=== PATIENT | female | born 1990 | race Caucasian/White ===

== ENCOUNTER 2020-04-23 18:38 | Inpatient (IN) | payer BC, SELFPAY ==
[2020-04-23] VITALS (8 sets, daily range): BP systolic 130–149; BP diastolic 81–99; PULSE 93–108; TEMP 36.1–36.6; BMI 46.5
--- NOTE | ~2020-04-23 | XR_ITS ---
EXAMINATION: XR abdomen/kub 1V EXAM DATE: 04/25/2020 10:00 INDICATION: No surgical count. TECHNIQUE: Frontal projection(s) of the abdomen and pelvis for interpretation. There is no prior andreia dy for comparison. FINDINGS: No radiopaque foreign bodies identified. There is expected amount of colonic stool and gas . No small bowel dilation, nonobstructive bowel gas pattern. There are no suspicious calcificatio ns identified. The bones are unremarkable. IMPRESSION: No radiopaque foreign bodies identified. Reviewed, dictated and finalized at location A.
[2020-04-23 19:59] LABS: Basophils Percent Auto 0.2 % (0.2-1.2); Eosinophils Absolute Auto 0.1 K/mm3 (0-0.3); Eosinophils Percent Auto 1.2 % (0-4.4); Hematocrit 35.1 % (37.0-47.0); Hemoglobin 11.6 g/dL (12.0-15.0); Immature Granulocyte Absolute 0.38 K/mm3 (0.00-0.031); Immature Granulocyte Percent A 3.1 % (0-0.5); Lymphocytes Absolute Auto 2.04 K/mm3 (0.9-3.2); Lymphocytes Percent Auto 16.8 % (18.3-44.2); Mean Corpuscular Hemoglobin 27.5 pg (26-34); Mean Corpuscular Volume 83.2 fl (80-100); Mean Platelet Volume 9.9 fl (7.4-10.4); Monocytes Absolute Auto 0.6 K/mm3 (0.1-0.6); Monocytes Percent Auto 4.9 % (2.6-8.5); Neutrophils Percent Auto 73.8 % (45.5-73.1); Nucleated Red Blood Cells Perc 0.2 % (0.0-0.2); Platelet Count Result 231 k/mm3 (150-375); Red Blood Count 4.22 M/mm3 (4.2-5.4); Red Cell Distribution Width 15.9 % (11.5-14.5); White Blood Count 12.2 K/mm3 (4.5-10.0)
[2020-04-23] MEDS: DINOPROSTONE 10 MG VAG INSERT VAGINAL (20:00)
[2020-04-23 20:10] LABS: Alanine Aminotransferase 15 U/L (4-35); Albumin Level 3.5 g/dL (3.5-5.1); Alkaline Phosphatase 153 U/L (38-126); Aspartate Amino Transferase 19 U/L (14-36); Bilirubin,Total 0.2 mg/dL (0.2-1.3); Blood Urea Nitrogen 11 mg/dL (7-17); Calcium 9.2 mg/dL (8.4-10.2); Carbon Dioxide 20 mmol/L (22-30); Chloride 105 mmol/L (98-107); Estimated Glomerular Filt Rate > 60; Glucose 110 mg/dL (65-105); Potassium 3.7 mmol/L (3.4-5.0); Sodium 134 mmol/L (137-145); Uric Acid 5.9 mg/dL (2.5-7.5)
[2020-04-23] MEDS: LACTATED RINGERS 1,000 ML 125 ML IV CONT (20:16)
[2020-04-23] MEDS: AMPICILLIN 2 GM/NS 100 ML 2 GM/100 ML BAG IVPB (20:16)
--- NOTE | 2020-04-23 20:25 | LDADM ---
This patient, Kaye Dash, was admitted to Labor/Delivery/Recovery 108 on 04/23/20 at 18:38. Plans for labor, pain management and were discussed with patient. Patient/family oriented to hospital policies and general routines including ID bracelet, bed and alarms, visiting hours, pain management, procedures, bathroom and other care routines, personal items, smoking policy, room service/diet and guest tray routines, infant security routines, and visiting hours. Patient/Family are encouraged to report perceived risks to care and to ask questions if they do not understand what they are told or what they should do. See OBIX for further documentation.
[2020-04-24] VITALS (228 sets, daily range): BP systolic 100–168; BP diastolic 48–111; PULSE 76–128; TEMP 36.2–37.4; O2SAT 94–100
[2020-04-24] MEDS: AMPICILLIN 1 GM/NS 50 ML 1 GM/50 ML BAG IVPB ×6 (00:11→22:31)
--- NOTE | 2020-04-24 03:57 | WPDANESEPP ---
Anes - Eval Pre Procedure Procedure: labor epidural Date/Time: 04/24/20 03:57 Surgeon: Anjel Preop Diagnosis: Abd pain with contractions Pre Op Diagnosis: IOL Patient Data Age: 29 Gender: F Height: 5 ft 4 in Weight: 123 kg Last Vital Signs Temp 97.1 F L 04/24/20 02:22 Pulse 97 04/24/20 02:26 BP 136/91 H 04/24/20 02:26 Allergies Allergy/AdvReac Type Severity Reaction Status Date / Time No Known Allergies Allergy Verified 04/05/20 12:37 Home Medications Medication Instructions Recorded Confirmed Type PNV cmb#95-ferrous fumarate-FA 1 tablet PO DAILY 04/05/20 04/05/20 History [] aspirin [Aspirin Low Dose] 81 mg PO DAILY 04/05/20 04/05/20 History Laboratory Tests 04/23/20 04/23/20 04/23/20 19:50 19:50 19:50 WBC 12.2 K/mm3 H K/mm3 (4.5-10.0) RBC 4.22 M/mm3 M/mm3 (4.2-5.4) Hgb 11.6 g/dL L g/dL (12.0-15.0) Hct 35.1 % L % (37.0-47.0) MCV 83.2 fl fl (80-100) MCH 27.5 pg pg (26-34) MCHC 33.0 g/dl g/dl (32-36) RDW 15.9 % H % (11.5-14.5) Plt Count 231 k/mm3 k/mm3 (150-375) MPV 9.9 fl fl (7.4-10.4) Immature Gran % (Auto) 3.1 % H % (0-0.5) Neut % (Auto) 73.8 % H % (45.5-73.1) Lymph % (Auto) 16.8 % L % (18.3-44.2) [place] % (Auto) 4.9 % % (2.6-8.5) Eos % (Auto) 1.2 % % (0-4.4) Baso % (Auto) 0.2 % % (0.2-1.2) Lymph # (Auto) 2.04 K/mm3 K/mm3 (0.9-3.2) [place] # (Auto) 0.6 K/mm3 K/mm3 (0.1-0.6) Eos # (Auto) 0.1 K/mm3 K/mm3 (0-0.3) Baso # (Auto) 0.0 K/mm3 K/mm3 (0.0-0.1) Abs Immat Gran (auto) 0.38 K/mm3 H K/mm3 (0.00-0.031) Absolute Neuts (auto) 9.0 K/mm3 H K/mm3 (1.3-6.7) Absolute Nucleated RBC 0.0 K/mm3 K/mm3 (0.0-0.012) Nucleated RBC % 0.2 % % (0.0-0.2) Sodium Potassium Chloride Carbon Dioxide BUN Creatinine Estim Creat Clear Calc Estimated GFR Glucose Uric Acid Cancelled Calcium Total Bilirubin AST ALT Alkaline Phosphatase Total Protein Albumin RPR Pending Blood Type Antibody Screen 04/23/20 04/23/20 19:50 19:50 WBC RBC Hgb Hct MCV MCH MCHC RDW Plt Count MPV Immature Gran % (Auto) Neut % (Auto) Lymph % (Auto) [place] % (Auto) Eos % (Auto) Baso % (Auto) Lymph # (Auto) [place] # (Auto) Eos # (Auto) Baso # (Auto) Abs Immat Gran (auto) Absolute Neuts (auto) Absolute Nucleated RBC Nucleated RBC % Sodium 134 mmol/L L mmol/L (137-145) Potassium 3.7 mmol/L mmol/L (3.4-5.0) Chloride 105 mmol/L mmol/L (98-107) Carbon Dioxide 20 mmol/L L mmol/L (22-30) BUN 11 mg/dL mg/dL (7-17) Creatinine 0.50 mg/dL L mg/dL (0.7-1.0) Estim Creat Clear Calc Not Reportable Estimated GFR > 60 (59 - ) Glucose 110 mg/dL H mg/dL (65-105) Uric Acid 5.9 mg/dL mg/dL (2.5-7.5) Calcium 9.2 mg/dL mg/dL (8.4-10.2) Total Bilirubin 0.2 mg/dL mg/dL (0.2-1.3) AST 19 U/L U/L (14-36) ALT 15 U/L U/L (4-35) Alkaline Phosphatase 153 U/L H U/L (38-126) Total Protein 7.0 g/dL g/dL (6.3-8.2) Albumin 3.5 g/dL g/dL (3.5-5.1) RPR Blood Type O Positive Antibody Screen Negative Patient hx anesthesia problems: none Family hx anesthesia problems: none PMFSH Past Medical History Medical History (Reviewed 04/24/20 @ 03:59 b
--- NOTE | 2020-04-24 08:00 | WPDOBADMIT ---
Obstetrics - Admit Note Admission Note: 29 y/o G1 @ 38w2d here for induction of labor d/t chronic hypertension Cervix 8nth7lty/thick/-3 but well applied AROM small amount of clear odorless fluid. Anticipate record reviewed. No pertinent additions to the history and/or any subsequent changes in the physical findings that are not consistent with the expected course of the were found. Additions to the history and/or subsequent changes in the physical findings follow. None.
[2020-04-24 08:50] LABS: Rapid Plasma Reagin Non-Reactive (NonReactive)
[2020-04-24] MEDS: LACTATED RINGERS 1,000 ML 125 ML IV CONT ×3 (10:14→19:58)
[2020-04-24] MEDS: OXYTOCIN 30 UNITS/NS 500 ML 30 UNITS/500 ML BAG 6 UNITS IV CONT (11:17)
[2020-04-24] MEDS: ONDANSETRON INJ 4 MG/2 ML VIAL IV PUSH (19:54)
[2020-04-25] VITALS (184 sets, daily range): BP systolic 114–162; BP diastolic 57–107; PULSE 73–127; RESP 16–20; TEMP 36.4–37.5; O2SAT 94–100
[2020-04-25] MEDS: AMPICILLIN 1 GM/NS 50 ML 1 GM/50 ML BAG IVPB ×2 (02:31→06:23)
[2020-04-25] MEDS: OXYTOCIN 30 UNITS/NS 500 ML 30 UNITS/500 ML BAG 36 UNITS IV CONT (07:19)
--- NOTE | 2020-04-25 08:55 | PM.OBPNLAB ---
Pain Control Date/time seen: 04/25/20 08:55 CNM called to evaluate /-2, pt started bleeding by my arrival around 500cc, on exam found second degree laceration, repaired with 3-0 vicryl, bleeding still from unknown location discussed with pt loss of blood and station of fetus, will plan for section, DR. Turcios called and pt transferred to the operating room.
--- NOTE | 2020-04-25 10:01 | P.OP_ITS ---
Procedure Note - Detailed Date of procedure: 04/25/20 Pre-op diagnosis: IOL intra hemorrhage, failure to descend Post-op diagnosis: same ( malposition of the head) Procedure performed: low-transverse delivery Description of procedure: The patient was taken the operating room. She was prepped and draped in the dorsal supine position with leftward tilt after induction of spinal anesthetic. When anesthesia was found to be adequate a low- transverse skin incision was made and carried down to the level the fascia with the knife. The fascial incision was made at the midline with a scalpel. The fascial incision was extended laterally with Adams scissors. The fascia was tented upward superior and inferior with Fany clamps. The rectus muscles were dissected off bluntly. The rectus muscles at the midline. The preperitoneal fat was dissected bluntly at the superior aspect of the separate the rectus muscles. The peritoneal cavity was entered bluntly in the same area. The peritoneal incision was extended superior and inferior with good visualization of bladder. Bladder blade was inserted. A low-transverse incision was made on the uterus with the scalpel. It was carried down the level of the amniotic cavity with a knife. The amniotic cavity bluntly. The uterine incision was made laterally with blunt traction. The was delivered. The cord was clamped and cut. The was handed off to waiting pediatric staff. Cord bloods were obtained. The placenta was removed manually. The uterus was exteriorized. Uterus cleared of all clots and debris. Uterus closed in 0 Vicryl in a running locked fashion. An imbricating layer of 0 Vicryl was also placed on the to bolster the closure. The uterus was returned to the abdomen. The gutters were cleared of all clots and debris. The fascia was closed 0 Vicryl in a running fashion. Subcutaneous tissue was irrigated and bleeding areas were cauterized. The skin was closed with subcuticular absorbable st aples. The incision was covered with derma gonzalez. The patient tolerated the procedure well. She was taken recovery room stable condition. Sponge, lap, needle counts were correct x2. During the procedure, bright red blood was noted in the Coffman bag. The patient had some bright red blood in her Coffman prior to pushing in the 2nd stage of labor. While the patient's abdomen was open, methylene blue colored normal saline was instilled into the bladder. Good bladder distention was felt and observed, there was good pressure within the bladder and no leakage. No defect in the bladder leaking clear fluid was observed. Anesthesia: spinal Surgeon: Evan Turcios MD Estimated blood loss (mL): 445 Drains: No Packing: No Pathology: none sent Complications: No immediate complications Condition: stable Disposition: floor Findings: Normal maternal anatomy. Average size infant with normal Apgars. No gross evidence of abruption. head in the left occiput posterior position, intact bladder after methylene blue instillation
[2020-04-25] MEDS: miSOPROStol 200 MCG TABLET 1000 MCG RECTAL (10:24)
[2020-04-25] MEDS: OXYTOCIN 30 UNITS/NS 500 ML 30 UNITS/500 ML BAG 125 UNITS IV CONT (10:31)
[2020-04-25] MEDS: KETOROLAC 30 MG/ML VIAL (*BKC) IV PUSH (11:11)
[2020-04-25] MEDS: DEXTROSE 5%/0.45% SOD CHL 1,000 ML 125 ML IV CONT (14:53)
--- NOTE | 2020-04-25 15:00 | PC.NURSE ---
Consulted with patient, infant first time to breast. bottle fed first two feedings due to mother is in pain. Reviewed infant feeding cues, frequencies, duration of feedings, feeding elimination flow sheet, and signs of adequate intake. Demonstrated stimulation techniques to wake for feeding. Assisted with to breast. Reviewed positioning/alignment in football, holding breast in C hold and guided asymmetrical latch on. was sleepy and made weak attempts to latch in 10 minutes period. bottle fed by FOB due to blood glucose.
[2020-04-25] MEDS: IBUPROFEN 600 MG TABLET PO (17:44)
[2020-04-25] MEDS: DOCUSATE SODIUM 100 MG CAPSULE PO (17:45)
[2020-04-25] MEDS: SIMETHICONE 80 MG TAB.CHEW PO (17:45)
[2020-04-25] MEDS: diphenhydrAMINE HCl INJ 50 MG/ML VIAL 25 MG IV PUSH (20:20)
--- NOTE | 2020-04-25 20:31 | PC.NURSE ---
1237 Pt admitted to room 286 per stretcher from labor and delivery after primary delivery of viable male infant at [address] Turcios. Mother is a and desires to breast feed. FOB present; Couple oriented to room, staffing and procedures; admission folder reviewed. Pt's VSS and assessment WNL.
[2020-04-26] MEDS: IBUPROFEN 600 MG TABLET PO ×3 (05:05→18:37)
[2020-04-26 05:28] VITALS: BP 126/69; PULSE 100; RESP 16; TEMP 36.5
[2020-04-26 07:25] VITALS: BP 124/78; PULSE 98; RESP 16; TEMP 36.6; O2SAT 98
--- NOTE | 2020-04-26 07:30 | PC.NURSE ---
Pt introductions made and plan of care discussed per post op c section, pain management, breast feeding, supplementing, daily care activities. PT verbalized understanding of such care.
--- NOTE | 2020-04-26 07:40 | WPDANLDPN2 ---
Anes-Prog Note L&D Date/Time: 04/26/20 07:40 Comfortable throughout: labor and section Neuraxial method: epidural Epidural/Spinal procedure site: clean & non-tender Neuro status: Neuro function grossly intact. Cardiovascular status: normal Respiratory status: normal Airway patency: baseline Mental status: baseline Post-Op hydration status: normal Vital Signs: Last Vital Signs Temp 36.5 C 04/26/20 05:28 Pulse 100 04/26/20 05:28 Resp 16 04/26/20 05:28 BP 126/69 04/26/20 05:28 Pulse Ox 98 04/25/20 16:15 Pain score (VAS): 0/10. Patient up to bedside at time of assessment, appears comfortable. No concerns at time of assessment. Support person at bedside. I/O: Intake & Output 04/25/20 04/25/20 04/26/20 15:59 23:59 07:59 Intake Total 162 1000 Output Total 1992 4000 Balance -1831 -3000 Post-procedural complaints: none and pruritis mild, no treatment Patient feedback: Patient satisfied with anesthetic care.
--- NOTE | 2020-04-26 07:42 | WPDANLDNPN2 ---
Anes-Prog Note L&D-Neuraxial Date/Time: 04/26/20 07:42 Neuraxial medications: epidural PF morphine Opiod-related complaints: none Patient feedback: Patient satisfied with post-operative pain management.
[2020-04-26 07:45] LABS: Basophils Percent Auto 0.2 % (0.2-1.2); Eosinophils Absolute Auto 0.1 K/mm3 (0-0.3); Eosinophils Percent Auto 0.7 % (0-4.4); Hematocrit 24.7 % (37.0-47.0); Hemoglobin 8.1 g/dL (12.0-15.0); Immature Granulocyte Absolute 0.25 K/mm3 (0.00-0.031); Immature Granulocyte Percent A 1.9 % (0-0.5); Lymphocytes Absolute Auto 1.16 K/mm3 (0.9-3.2); Lymphocytes Percent Auto 8.9 % (18.3-44.2); Mean Corpuscular HGB Conc 32.8 g/dl (32-36); Mean Corpuscular Hemoglobin 27.6 pg (26-34); Mean Corpuscular Volume 84.3 fl (80-100); Mean Platelet Volume 10.5 fl (7.4-10.4); Monocytes Absolute Auto 0.8 K/mm3 (0.1-0.6); Monocytes Percent Auto 6.5 % (2.6-8.5); Neutrophils Absolute Auto 10.7 K/mm3 (1.3-6.7); Neutrophils Percent Auto 81.8 % (45.5-73.1); Platelet Count Result 151 k/mm3 (150-375); Red Blood Count 2.93 M/mm3 (4.2-5.4); Red Cell Distribution Width 16.5 % (11.5-14.5)
[2020-04-26] MEDS: SIMETHICONE 80 MG TAB.CHEW PO ×3 (08:25→17:46)
[2020-04-26] MEDS: DOCUSATE SODIUM 100 MG CAPSULE PO ×2 (08:25→17:46)
[2020-04-26] MEDS: MULTIVIT/MIN/PREN/FOL AC/IRON TABLET 1 TAB PO (08:26)
[2020-04-26] MEDS: POLYSACCHARIDE IRON COMPLEX 150 MG CAPSULE PO ×2 (08:26→17:46)
--- NOTE | 2020-04-26 08:27 | P.PNOB_ITS ---
OB - PN: Subj Subjective Date/time seen: 04/26/20 08:27 OB - PN: Obj Data Labs CBC & Chem 7: 04/26/20 07:12 04/23/20 19:50 Labs: Laboratory Results - last 24 hr 04/26/20 07:12 WBC 13.0 H RBC 2.93 L Hgb 8.1 L D Hct 24.7 L MCV 84.3 MCH 27.6 MCHC 32.8 RDW 16.5 H Plt Count 151 MPV 10.5 H Immature Gran % (Auto) 1.9 H Neut % (Auto) 81.8 H Lymph % (Auto) 8.9 L [place] % (Auto) 6.5 Eos % (Auto) 0.7 Baso % (Auto) 0.2 Lymph # (Auto) 1.16 [place] # (Auto) 0.8 H Eos # (Auto) 0.1 Baso # (Auto) 0.0 Abs Immat Gran (auto) 0.25 H Absolute Neuts (auto) 10.7 H Absolute Nucleated RBC 0.0 Nucleated RBC % 0.0 Imaging Radiologist's impression: Impressions Abdomen X-Ray 04/25/20 10:02 IMPRESSION: No radiopaque foreign bodies identified. OB - PN A/P Plan day: 1 Plan: routine care Time Spent With Patient Time: Total time spent is greater than 50% in coordination of care (as documented) at patient's floor/unit and/or counseling patient: Review of Systems Review of Systems: All systems reviewed & are unremarkable except as noted in HPI and below Exam Narrative: Exam Narrative: Fundus firm and vaginal flow controlled. Pt ambulating without difficulty. Not feeling light headed or dizzy. Const: General: comfortable Chest: Breast/axilla inspection: normal inspection of the breasts Resp: Effort & Inspection: normal respiratory effort Cardio: Rate: regular rate GI: Auscultation: normal bowel sounds Psych: Appearance: grossly normal Affect: normal affect Attitude: cooperative Judgement: Good judgement present (Psych)
[2020-04-26 09:21] VITALS: PULSE 98; RESP 16; O2SAT 98
--- NOTE | 2020-04-26 10:10 | PC.NURSE ---
late entry: 04-25-2020 Pt's PP Pitocin bag, 500cc infused and floor fluids continued.
--- NOTE | 2020-04-26 15:11 | PC.NURSE ---
Breast pump provided due to ineffective feedings. Instructions given on breast pump care and usage, pumping schedule, nipple care, and collection and storage of breast milk. Encouraged [id number], breast massage and manual expression to stimulate supply. Assessed patient for correct flange size, placement and draw. Patient verbalizes and demonstrates understanding of instructions.
[2020-04-26 18:30] VITALS: BP 148/89; PULSE 90; RESP 12; TEMP 37.3
[2020-04-27] MEDS: IBUPROFEN 600 MG TABLET PO ×4 (01:45→22:07)
--- NOTE | 2020-04-27 07:30 | PC.NURSE ---
PT introductions made and plan of care discussed per post op c section, pain management, breast/bottle/pumping, daily care activities. PT verbalized understanding of such care.
[2020-04-27] MEDS: SIMETHICONE 80 MG TAB.CHEW PO ×3 (07:37→17:09)
[2020-04-27] MEDS: DOCUSATE SODIUM 100 MG CAPSULE PO ×2 (07:38→17:09)
[2020-04-27] MEDS: MULTIVIT/MIN/PREN/FOL AC/IRON TABLET 1 TAB PO (07:38)
[2020-04-27] MEDS: POLYSACCHARIDE IRON COMPLEX 150 MG CAPSULE PO ×2 (07:38→17:09)
[2020-04-27 07:45] VITALS: PULSE 106; RESP 18; O2SAT 100
[2020-04-27 07:55] VITALS: BP 145/92; PULSE 106; RESP 18; TEMP 36.9; O2SAT 100
--- NOTE | 2020-04-27 08:26 | P.PNOB_ITS ---
OB - PN: Subj Subjective Date/time seen: 04/27/20 08:26 Patient comments: no complaints, pain well controlled, incisional pain, tolerating diet and flatus present OB - PN: Obj Data Labs CBC & Chem 7: 04/26/20 07:12 04/23/20 19:50 OB - PN A/P Plan day: 2 Plan: routine care Comments: POD#2 LTCS - no problems, Time Spent With Patient Time: Total time spent is greater than 50% in coordination of care (as estuardo guillen) at patient's floor/unit and/or counseling patient: Exam Const: General: comfortable, no acute distress and alert Resp: Effort & Inspection: normal respiratory effort Auscultation: no crackles, no rales and no rhonchi Cardio: Rate: regular rate Heart sounds: no click, no murmurs and no rubs GI: Inspection: non-distended GI Palp: No Tenderness to palpation present (GI) Auscultation: normal bowel sounds Other: Incision - CDI Extrem: General: normal to inspection, no pedal edema and no calf tenderness
[2020-04-27 14:30] VITALS: BP 131/86; PULSE 107; RESP 20; O2SAT 100
--- NOTE | 2020-04-27 15:30 | PC.NURSE ---
Consult with pt., to discuss if mother wishes to put to breast or continue to bottle feed. Mother states her ultimate goal is to breastfeed, she does not want to force infant to feed if he does not want to latch. Reviewed may have to work to learn to latch. Discussed infant has been bottle fed and may take time to latch. Mother states she is comfortable with pumping and bottle feeding at this time. Discussed the option how to feed infant is theirs and can change if they change later. Suggested to put to breast each feeding for a few minutes, then have FOB bottle feed and mother initiate regular pumping after each feeding to assist with stimulation of milk supply and may give as part of supplement.
[2020-04-27 20:30] VITALS: BP 140/87; PULSE 98; RESP 20; TEMP 36.4; O2SAT 98
[2020-04-28 04:15] VITALS: BP 107/54; PULSE 100; RESP 20; TEMP 36.5; O2SAT 100
[2020-04-28 05:00] VITALS: BP 128/78; PULSE 100; RESP 20; TEMP 36.7; O2SAT 98
[2020-04-28] MEDS: IBUPROFEN 600 MG TABLET PO ×2 (05:06→11:33)
--- NOTE | 2020-04-28 07:35 | P.PNOB_ITS ---
OB - PN: Subj Subjective Date/time seen: 04/28/20 07:35 Patient comments: no complaints baby status: doing well OB - PN: Obj Data Labs CBC & Chem 7: 04/26/20 07:12 04/23/20 19:50 OB - PN A/P Plan day: 3 Plan: discharge home Time Spent With Patient Time: Total time spent is greater than 50% in coordination of care (as documented) at patient's floor/unit and/or counseling patient: Exam 2 Const: General: comfortable Psych: Appearance: grossly normal Affect: normal affect Attitude: cooperative
[2020-04-28 08:00] VITALS: BP 149/87; PULSE 108; RESP 18; TEMP 37; O2SAT 100
--- NOTE | 2020-04-28 11:30 | PC.NURSE ---
Consult with pt., mother reports she will continue to pump and bottle feed at this time. Should mother decide to put infant to breast she understands she may call and/or return with any concerns or needs. Mother has a pump for home use and is comfortable with pumping. Mother is feeding as required and waking infant to feed if needed. is currently meeting outcomes for weight, output, jaundice and feeding frequencies. Mother states she feels confident to continue pumping and bottle feeding at home. Reviewed transition to breast milk, signs of adequate intake, and engorgement/relief. Instructed to call ICP if intake/output less than required. Reviewed regular medications mother is taking. Information provided per Evie. Reviewed community resources on the [facility] website and in the Mom/Baby guide. Information on outpatient services provided. Mother has no further questions at this time.
[2020-04-28] MEDS: POLYSACCHARIDE IRON COMPLEX 150 MG CAPSULE PO (11:32)
[2020-04-28] MEDS: DOCUSATE SODIUM 100 MG CAPSULE PO (11:32)
[2020-04-28] MEDS: SIMETHICONE 80 MG TAB.CHEW PO (11:42)
[2020-04-29 09:34] VITALS: BP 150/88; PULSE 108; RESP 16; TEMP 36.7; O2SAT 100
--- NOTE | 2020-05-24 11:49 | PM.IMHP ---
H&P: HPI History of Present Illness Date/Time: 05/24/20 11:49 Chief complaint: IOL Narrative: Kaye Dash is a 29 year old female 1 at 30 weeks gestation who presented in labor. Ultimately she had intrapartum bleeding and nonreassuring heart tones. delivery was performed. Her was complicated by chronic hypertension. She had extensive testing. Review of Systems Constitutional: Constitutional: Reports no additional constitutional complaints, Denies fatigue, Denies headache(s), Denies lethargy and Denies weakness Eyes: Eyes: Reports no additional eye complaints, Denies blurry vision and Denies photophobia ENT: Reports as per HPI, Denies headache(s) and Denies neck pain Cardiovascular: Cardiovascular: Denies chest pain, Denies diaphoresis, Denies leg edema, Denies palpitations and Denies dyspnea Respiratory: Respiratory: Denies hemoptysis, Denies dyspnea and Denies wheezing Gastrointestinal: Gastrointestinal: Denies abdominal pain, Denies melena, Denies bloating, Denies hematochezia, Denies nausea and Denies vomiting Genitourinary: Genitourinary: Reports no additional female genitourinary complaints Musculoskeletal: Musculoskeletal: Denies joint swelling, Denies neck pain, Denies numbness and Denies stiffness Neurologic: Denies Abnormal speech present, Denies confusion, Denies headache(s), Denies numbness and Denies weakness Psychiatric: Psychiatric: Denies anxiety, Denies confusion, Denies depression, Denies homicidal ideation and Denies suicidal ideation Endocrine: Endocrine: Denies fatigue and Denies palpitations Allergic/Immunologic: Allergic/Immunologic: Denies wheezing [facility] Past Medical History Medical History (Updated 05/09/20 @ 08:44 by Princess Chris [facility]) delivery delivered 04/25/20, c/s, 38w3d, male, 8#9, GHTN, Intrapartum bleeding, failure to descend Gestational HTN Migraines Morbid obesity Family History Family History Father Hx of CABG Hypertension Grandparent Hx of CABG Borderline type 2 diabetes mellitus Hypertension Social History Social History Smoking status: Never smoker Second hand tobacco smoke exposure: No Substance use: never Spiritual care concerns: No Meds Home Medications and Allergies Home Medications Medication Instructions Recorded Confirmed Type PNV cmb#95-ferrous fumarate-FA 1 tablet PO DAILY 04/05/20 05/05/20 History [] hydrocodone-acetaminophen 1 tab PO Q3H PRN #20 tablet 04/28/20 05/05/20 Rx polysaccharide iron complex 150 mg PO BIDWM #30 cap 04/28/20 05/05/20 Rx docusate sodium [Dulcolax Stool 100 mg PO BID 04/29/20 05/05/20 History Softener (dss)] ibuprofen 600 mg PO Q6H PRN tablet 04/29/20 05/05/20 Rx labetalol 400 mg PO Q12H #240 tablet 05/06/20 Rx sertraline [Zoloft] 50 mg PO QAM #30 tablet 05/06/20 Rx Allergies Allergy/AdvReac Type Severity Reaction Status Date / Time No Known Allergies Allergy Verified 04/05/20 12:37 Exam Const: General: healthy appearing, comfortable and no acute distress; No confusion Orientation/consciousness: No confusion Eyes: Direct Ophthalmoscopy: No photophobia Resp: Auscultation: clear to auscultation bilaterally, no rales, no rhonchi and no wheezes Cardio: Rate: regular rate Heart sounds: no click, no murmurs and no rubs GI: Inspection: non-distended GI Palp: No abdominal tenderness Auscultation: normal bowel sounds Neuro: General: No confusion Speech: No Abnormal speech present Extrem: General: normal to inspection, no pedal edema and no calf tenderness Assessment and Plan Assessment and plan (1) depression: Code(s): O99.345 - Other mental disorders complicating the puerperium; F53.0 - depression Status: Acute (2) Gestational hypertension: Co
--- NOTE | 2020-05-24 11:52 | PM.OBDSVD ---
DS: Admitting Diagnosis Admitting Diagnosis Admitting Diagnosis: IOL DS: Discharge Diagnosis Discharge Diagnosis (1) depression: Code(s): O99.345 - Other mental disorders complicating the puerperium; F53.0 - depression Status: Acute (2) Gestational hypertension: Code(s): O13.9 - Gestational [-induced] hypertension without significant proteinuria, unspecified trimester Status: Acute (3) Intrapartum hemorrhage: Code(s): O67.9 - Intrapartum hemorrhage, unspecified Status: Acute OB - DS: Summary OB Procedures : NST and Ultrasound OB Procedures Intrapartum: OB Procedures: : None Peripartum Data Infant Delivery Method: Section Procedures: Procedures Operation Date: 04/25/20 09:00 Actual Procedures Side Surgeon p Section Evan Turcios MD Status at Discharge Functional status at discharge: independent ambulation Time Spent with Patient Time attestation: Total time spent providing and/or coordinating discharge services: DS: Data Data Completed and Pending Completed studies during hospitalization: Pending at discharge 04/26/20 09:48 Surgical [PTH] Routine Discharge Plan Discharge Attending physician on discharge: Evan Turcios Consulting providers: Kamryn Reyna ; Nguyen Yung ; Elbert Shirley Discharging Clinician: Nguyen Yung Patient Disposition: Home, Self-Care Activity: may drive after 2 weeks and pelvic rest Diet: regular Discharge Instructions: Education: Mom and Baby Guide Given to: Mother Follow-Up: Call your delivering provider's office for an appointment to be seen in: 1 Week Mom and baby should come to the [facility] for the follow-up appointment. Appointment Date/Time: Wednesday, April 29, 2020 at 9:00 am What to expect at your follow-up visit: Blood Pressure Check Physical Assessment Call [phone] if you are unable to keep your appointment time. BREAST CARE: 1. Wear a snug supportive bra. 2. For engorgement discomfort: Breast Feeding: A. Apply warm moist washcloths B. Express milk as needed to relieve engorgement C. Wear loose clothing Bottle Feeding: A. May apply ice packs 3. For sore nipples: A. Identify correct latch-on B. Apply warm moist washcloths before and after nursing C. Air dry nipples after nursing D. May apply Lansinoh cream to nipples ABDOMINAL INCISION: (if applicable) 1. Allow incision to air dry 2. Do NOT use lotions for powders on your incision 3. When showering, allow soap and water to run over the incision, but do not wash incision EPISIOTOMY/PERINEAL CARE: 1. Until bleeding stops, use your pritesh bottle after urinating 2. Change your pad frequently throughout the day 3. You may take sitz baths several times a day (fill your bathtub with warm water and soak for 20 minutes.) Do NOT bathe in the water 4. No tub baths until seen by your physician - You may shower ACTIVITY: 1. Rest as much as possible. 2. Do not exercise or lift anything heavier than your baby (such as laundry or other children.) 3. Avoid stairs or driving as much as possible. 4. Do not put anything into the vagina. No douching, tampons, or sexual activity until seen by physician. NOTIFY PHYSICIAN IF YOU HAVE ANY QUESTIONS OR IF ANY OF THE FOLLOWING SYMPTOMS OCCUR: 1. If your incision becomes red, swollen, or more painful than what you have experienced in the hospital. 2. If your vaginal bleeding becomes foul smelling. 3. If your vaginal bleeding becomes more heavy than a period or if your bleeding changes from pink to bright red. However, you may pass an occasional walnut-sized clot once or twice for the first week . 4. If you experience a sharp, shooting pain in you calves. 5. If you discover a hard, reddened area on you
== END 2020-04-28 15:57 | disposition home or self-care (01) | DRG 788 ==
LOC: ANHLDR 04-25 08:52 → ANHOB2 04-25 13:14
PROVIDERS: Admitting Provider Obstetrics & Gynecology; Visit Provider Obstetrics & Gynecology
PROC: 10D00Z1 Extraction of Products of Conception, Low, Open Approach (ICD-10-PCS; CPT 59514; principal; 2020-04-25 09:00)
DX: O10.92 Unspecified pre-existing hypertension complicating childbirth (principal); O67.8 Other intrapartum hemorrhage; O70.1 Second degree perineal laceration during delivery; O32.4XX0 Maternal care for high head at term, not applicable or unspecified; O32.8XX0 Maternal care for other malpresentation of fetus, not applicable or unspecified; Z3A.38 38 weeks gestation of pregnancy; Z37.0 Single live birth
CPT/HCPCS: 36415; 74018; 80053; 84550; 85025; 86592; 86850; 86900; 86901; 88307; A9270; J0131; J0290; J0690; J1200; J1885; J2274; J2370; J2405; J2590; J2795; J7120

== ENCOUNTER 2020-04-29 10:00 | Outpatient (CLI) | payer BC, SELFPAY ==
[2020-04-29] VITALS (11 sets, daily range): BP systolic 125–158; BP diastolic 82–94; PULSE 96–110; RESP 18–20; TEMP 36.8–37.2
--- NOTE | 2020-04-29 11:05 | OBADM ---
This patient, Kaey Dash, admitted to the OB room 115 at 1000 as clinical outpatient for hypertension. Pt's BP's were elevated when she was her for her OB PP follow-up appointment. Patient/family oriented to hospital policies and general routines including ID bracelet, bed and alarms, visiting hours, pain management, procedures, bathroom and other care routines, personal items, smoking policy, room service/diet, and visiting hours. Patient/Family are encouraged to report perceived risks to care and to ask questions if they do not understand what they are told or what they should do.
[2020-04-29 11:42] LABS: Basophils Percent Auto 0.4 % (0.2-1.2); Eosinophils Absolute Auto 0.2 K/mm3 (0-0.3); Eosinophils Percent Auto 2.5 % (0-4.4); Hematocrit 26.3 % (37.0-47.0); Hemoglobin 8.4 g/dL (12.0-15.0); Immature Granulocyte Absolute 0.71 K/mm3 (0.00-0.031); Immature Granulocyte Percent A 7.4 % (0-0.5); Lymphocytes Absolute Auto 1.53 K/mm3 (0.9-3.2); Lymphocytes Percent Auto 15.9 % (18.3-44.2); Mean Corpuscular HGB Conc 31.9 g/dl (32-36); Mean Corpuscular Volume 84.6 fl (80-100); Mean Platelet Volume 9.7 fl (7.4-10.4); Monocytes Absolute Auto 0.4 K/mm3 (0.1-0.6); Neutrophils Absolute Auto 6.7 K/mm3 (1.3-6.7); Neutrophils Percent Auto 69.8 % (45.5-73.1); Nucleated Red Blood Cells Absolute Auto 0.1 K/mm3 (0.0-0.012); Nucleated Red Blood Cells Perc 0.5 % (0.0-0.2); Platelet Count Result 248 k/mm3 (150-375); Red Blood Count 3.11 M/mm3 (4.2-5.4); White Blood Count 9.7 K/mm3 (4.5-10.0)
[2020-04-29] MEDS: ACETAMINOPHEN 500 MG TABLET 1000 MG PO (11:42)
[2020-04-29 11:53] LABS: Alanine Aminotransferase 35 U/L (4-35); Albumin Level 3.3 g/dL (3.5-5.1); Alkaline Phosphatase 133 U/L (38-126); Anion Gap 11.8 mmol/L (7-16); Aspartate Amino Transferase 43 U/L (14-36); Bilirubin,Total 0.3 mg/dL (0.2-1.3); Blood Urea Nitrogen 9 mg/dL (7-17); Calcium 8.9 mg/dL (8.4-10.2); Carbon Dioxide 25 mmol/L (22-30); Chloride 106 mmol/L (98-107); Estimated Glomerular Filt Rate > 60; Glucose 75 mg/dL (65-105); Potassium 3.8 mmol/L (3.4-5.0); Sodium 139 mmol/L (137-145); Uric Acid 6.3 mg/dL (2.5-7.5)
--- NOTE | 2020-04-29 12:39 | PC.NURSE ---
Melissa Reyna CNM informed of BP's and lab results. LUZ will talk with Dr. Turcios and call back with results.
--- NOTE | 2020-04-29 12:44 | PC.NURSE ---
Melissa Reyna CNM called back and states Dr. Turcios would like to repeat labs in 4 hrs, but just continue to monitor BP's for now- no meds for BP at this time.
[2020-04-29] MEDS: IBUPROFEN 600 MG TABLET PO (13:47)
[2020-04-29 16:10] LABS: Hematocrit 25.6 % (37.0-47.0); Hemoglobin 8.2 g/dL (12.0-15.0); Mean Corpuscular Hemoglobin 27.2 pg (26-34); Mean Platelet Volume 9.4 fl (7.4-10.4); Platelet Count Result 243 k/mm3 (150-375); Red Blood Count 3.01 M/mm3 (4.2-5.4); Red Cell Distribution Width 15.9 % (11.5-14.5); White Blood Count 9.1 K/mm3 (4.5-10.0)
[2020-04-29 16:26] LABS: Alanine Aminotransferase 34 U/L (4-35); Albumin Level 3.2 g/dL (3.5-5.1); Alkaline Phosphatase 118 U/L (38-126); Anion Gap 9.6 mmol/L (7-16); Aspartate Amino Transferase 38 U/L (14-36); Bilirubin,Total 0.4 mg/dL (0.2-1.3); Blood Urea Nitrogen 8 mg/dL (7-17); Carbon Dioxide 27 mmol/L (22-30); Chloride 105 mmol/L (98-107); Estimated Glomerular Filt Rate > 60; Glucose 91 mg/dL (65-105); Potassium 3.6 mmol/L (3.4-5.0); Sodium 138 mmol/L (137-145); Uric Acid 6.5 mg/dL (2.5-7.5)
--- NOTE | 2020-04-29 16:52 | PC.NURSE ---
Melissa Reyna CNM updated on BP's, lab results, and headache is a 1 out of 10. Orders for discharge received. Phone placed on speaker phone mode for pt to talk with CNM. Pt verbalized question about just starting her on BP meds to prevent her higher ones. CNM discussed that pt has periods where her BP comes down to 130's and 140's with rest and relaxation and concern about dropping her BP if placed on meds. Discussed that she may end up being placed on BP meds, but they usually do that when BP's are consistently 160/100 or greater. Pt in agreement. OK to discharge with plan for pt to call office Friday morning and make appointment to see Dr. Turcios Friday or Friday. Pt to return if any worsening of preeclampsia symptoms.
== END 2020-04-29 17:20 | disposition home or self-care (01) ==
LOC: ANHOBOP 10:09 → ANHOBPP 10:36
PROVIDERS: Advanced Practice Midwife; Visit Provider Obstetrics & Gynecology
DX: O16.5 Unspecified maternal hypertension, complicating the puerperium (principal); Z3A.00 Weeks of gestation of pregnancy not specified
CPT/HCPCS: 36415; 80053; 84550; 85025; 85027; 99199; A9270

== ENCOUNTER 2020-05-02 16:40 | Outpatient (CLI) | payer BC, SELFPAY ==
[2020-05-02 17:15] VITALS: BP 150/87; PULSE 90
[2020-05-02 17:18] LABS: Basophils Absolute Auto 0.1 K/mm3 (0.0-0.1); Basophils Percent Auto 0.7 % (0.2-1.2); Eosinophils Absolute Auto 0.2 K/mm3 (0-0.3); Eosinophils Percent Auto 1.9 % (0-4.4); Hematocrit 26.3 % (37.0-47.0); Hemoglobin 8.3 g/dL (12.0-15.0); Immature Granulocyte Absolute 1.32 K/mm3 (0.00-0.031); Immature Granulocyte Percent A 12.6 % (0-0.5); Lymphocytes Absolute Auto 1.92 K/mm3 (0.9-3.2); Lymphocytes Percent Auto 18.4 % (18.3-44.2); Mean Corpuscular HGB Conc 31.6 g/dl (32-36); Mean Corpuscular Hemoglobin 26.9 pg (26-34); Mean Corpuscular Volume 85.1 fl (80-100); Mean Platelet Volume 9.1 fl (7.4-10.4); Monocytes Absolute Auto 0.7 K/mm3 (0.1-0.6); Monocytes Percent Auto 6.5 % (2.6-8.5); Neutrophils Absolute Auto 6.3 K/mm3 (1.3-6.7); Neutrophils Percent Auto 59.9 % (45.5-73.1); Nucleated Red Blood Cells Absolute Auto 0.1 K/mm3 (0.0-0.012); Nucleated Red Blood Cells Perc 1.1 % (0.0-0.2); Platelet Count Result 289 k/mm3 (150-375); Red Blood Count 3.09 M/mm3 (4.2-5.4); Red Cell Distribution Width 15.8 % (11.5-14.5); White Blood Count 10.5 K/mm3 (4.5-10.0)
[2020-05-02 17:30] VITALS: BP 149/85; PULSE 91
[2020-05-02 17:30] LABS: Alanine Aminotransferase 42 U/L (4-35); Albumin Level 3.5 g/dL (3.5-5.1); Alkaline Phosphatase 109 U/L (38-126); Anion Gap 12.8 mmol/L (7-16); Aspartate Amino Transferase 31 U/L (14-36); Bilirubin,Total 0.4 mg/dL (0.2-1.3); Blood Urea Nitrogen 10 mg/dL (7-17); Calcium 8.8 mg/dL (8.4-10.2); Carbon Dioxide 26 mmol/L (22-30); Chloride 105 mmol/L (98-107); Estimated Glomerular Filt Rate > 60; Glucose 84 mg/dL (65-105); Potassium 3.8 mmol/L (3.4-5.0); Sodium 140 mmol/L (137-145); Uric Acid 7.2 mg/dL (2.5-7.5)
[2020-05-02 17:45] VITALS: BP 155/85; PULSE 89
[2020-05-02 18:00] VITALS: BP 156/84; PULSE 89
[2020-05-02 18:15] VITALS: BP 149/82; PULSE 89
[2020-05-02 18:30] VITALS: BP 149/81; PULSE 89
--- NOTE | 2020-05-02 18:40 | PC.NURSE ---
Called Dr. Turcios with lab results and BPs. February D/C home for BP check in office on Friday.
== END 2020-05-02 18:50 | disposition home or self-care (01) ==
LOC: ANHOBOP 16:45 → ANHOBPP 16:48
PROVIDERS: Visit Provider Obstetrics & Gynecology
DX: O16.5 Unspecified maternal hypertension, complicating the puerperium (principal)
CPT/HCPCS: 36415; 80053; 84550; 85025; 99199

== ENCOUNTER 2020-05-05 16:00 | Observation (INO) | payer BC, SELFPAY ==
[2020-05-05] VITALS (15 sets, daily range): BP systolic 117–159; BP diastolic 66–100; PULSE 79–93; RESP 20; TEMP 36.6
[2020-05-05 16:52] LABS: Hematocrit 28.2 % (37.0-47.0); Mean Corpuscular HGB Conc 31.9 g/dl (32-36); Mean Corpuscular Hemoglobin 26.7 pg (26-34); Mean Corpuscular Volume 83.7 fl (80-100); Mean Platelet Volume 9.5 fl (7.4-10.4); Platelet Count Result 328 k/mm3 (150-375); Red Blood Count 3.37 M/mm3 (4.2-5.4); Red Cell Distribution Width 15.7 % (11.5-14.5); White Blood Count 11.8 K/mm3 (4.5-10.0)
[2020-05-05 17:03] LABS: Alanine Aminotransferase 31 U/L (4-35); Alkaline Phosphatase 114 U/L (38-126); Anion Gap 13.2 mmol/L (7-16); Aspartate Amino Transferase 27 U/L (14-36); Bilirubin,Total 0.4 mg/dL (0.2-1.3); Blood Urea Nitrogen 16 mg/dL (7-17); Calcium 9.3 mg/dL (8.4-10.2); Carbon Dioxide 27 mmol/L (22-30); Chloride 103 mmol/L (98-107); Estimated Glomerular Filt Rate > 60; Glucose 88 mg/dL (65-105); Potassium 4.2 mmol/L (3.4-5.0); Sodium 139 mmol/L (137-145); Uric Acid 7.8 mg/dL (2.5-7.5)
[2020-05-05] MEDS: LABETALOL HCL 100 MG TABLET 300 MG PO (17:10)
--- NOTE | 2020-05-05 17:33 | PC.NURSE ---
Patient very tearful and upset. Talked to patient in length about delivery, Patient states that she felt like she was going to and so was the baby. Patient also states that she had a heavy blood loss and is concerned about that. Discussed normal QBL and hgb with patient and how to rebuild her level and that it takes time. Also talked in length about her anxiety and elevated BPs. Discussed the risk of PP depression and warning signs.
--- NOTE | 2020-05-05 17:37 | PC.NURSE ---
Dr Turcios notified of BP's and Lab results. Orders received.
[2020-05-05] MEDS: LABETALOL HCL 100 MG TABLET PO (17:55)
[2020-05-06] VITALS (10 sets, daily range): BP systolic 109–171; BP diastolic 63–88; PULSE 84–88; RESP 18; TEMP 36.4–37
[2020-05-06] MEDS: LABETALOL HCL 100 MG TABLET 400 MG PO (07:38)
[2020-05-06] MEDS: SERTRALINE HCL 50 MG TABLET PO (07:39)
--- NOTE | 2020-05-06 13:35 | PM.IMHP ---
H&P: HPI History of Present Illness Date/Time: 05/06/20 13:35 This patient is a 29-year-old who is 10 days from a delivery. Her and . Were complicated by elevated blood pressures. She had preeclampsia. She presented to the office yesterday with very high blood pressures again. She was admitted overnight for observation she had normal labs upon admission. She denies any headache, blurry vision, epigastric pain. She reported earlier this week that she had some worsening edema. Her edema is stable at this time. She has had some mood concerns with some anxiety, sadness, agitation. Chief complaint: Elevated BP Narrative: Kaye Dash is a 29 year old female Review of Systems Constitutional: Constitutional: Reports no additional constitutional complaints, Denies fatigue, Denies headache(s), Denies lethargy and Denies weakness Eyes: Eyes: Reports no additional eye complaints, Denies blurry vision and Denies photophobia ENT: Reports as per HPI, Denies headache(s) and Denies neck pain Cardiovascular: Cardiovascular: Denies chest pain, Denies diaphoresis, Denies leg edema, Denies palpitations and Denies dyspnea Respiratory: Respiratory: Denies hemoptysis, Denies dyspnea and Denies wheezing Gastrointestinal: Gastrointestinal: Denies abdominal pain, Denies melena, Denies bloating, Denies hematochezia, Denies nausea and Denies vomiting Genitourinary: Genitourinary: Reports no additional female genitourinary complaints Musculoskeletal: Musculoskeletal: Denies joint swelling, Denies neck pain, Denies numbness and Denies stiffness Neurologic: Denies Abnormal speech present, Denies confusion, Denies headache(s), Denies numbness and Denies weakness Psychiatric: Psychiatric: Denies anxiety, Denies confusion, Denies depression, Denies homicidal ideation and Denies suicidal ideation Endocrine: Endocrine: Denies fatigue and Denies palpitations Allergic/Immunologic: Allergic/Immunologic: Denies wheezing PMFSH Social History Social History Smoking status: Never smoker Second hand tobacco smoke exposure: No Substance use: never Spiritual care concerns: No Meds Home Medications and Allergies Home Medications Medication Instructions Recorded Confirmed Type PNV cmb#95-ferrous fumarate-FA 1 tablet PO DAILY 04/05/20 05/05/20 History [] hydrocodone-acetaminophen 1 tab PO Q3H PRN #20 tablet 04/28/20 05/05/20 Rx polysaccharide iron complex 150 mg PO BIDWM #30 cap 04/28/20 05/05/20 Rx docusate sodium [Dulcolax Stool 100 mg PO BID 04/29/20 05/05/20 History Softener (dss)] ibuprofen 600 mg PO Q6H PRN tablet 04/29/20 05/05/20 Rx Allergies Allergy/AdvReac Type Severity Reaction Status Date / Time No Known Allergies Allergy Verified 04/05/20 12:37 Vital Signs Vital Signs - 24 hr 05/05/20 16:46 05/05/20 17:01 05/05/20 17:10 Temperature Pulse Rate 85 79 79 Respiratory Rate Blood Pressure 153/81 H 144/75 H 05/05/20 17:16 05/05/20 17:31 05/05/20 17:55 Temperature Pulse Rate 93 88 93 Respiratory Rate Blood Pressure 159/100 H 153/82 H 05/05/20 18:01 05/05/20 18:16 05/05/20 18:31 Temperature Pulse Rate 83 89 82 Respiratory Rate Blood Pressure 132/71 136/78 133/74 05/05/20 18:35 05/05/20 19:38 05/05/20 20:28 Temperature 98 F Pulse Rate 81 88 Respiratory Rate 20 Blood Pressure 140/75 129/68 05/05/20 21:35 05/05/20 22:01 05/05/20 23:01 Temperature Pulse Rate 88 80 83 Respiratory Rate Blood Pressure 131/68 117/66 124/70 05/06/20 00:01 05/06/20 03:19 05/06/20 07:26 Temperature 97.9 F 97.6 F Pulse Rate 85 84 85 Respiratory Rate 18 Blood Pressure 139/71 145/76 H 146/75 H 05/06/20 07:38 05/06/20 09:38 05/06/20 10:48 Temperature Pulse Rate 85 85 88 Respiratory Rate Blood Pressure 109/63 133/72 05/06/20 13:25 05/06/20
== END 2020-05-06 14:14 | disposition home or self-care (01) ==
PROVIDERS: Admitting Provider Obstetrics & Gynecology; Visit Provider Obstetrics & Gynecology
DX: O13.5 Gestational [pregnancy-induced] hypertension without significant proteinuria, complicating the puerperium (principal); O14.95 Unspecified pre-eclampsia, complicating the puerperium; O99.345 Other mental disorders complicating the puerperium; F53.0 Postpartum depression
CPT/HCPCS: 36415; 80053; 84550; 85025; A9270; G0378; G0379

== ENCOUNTER 2022-03-20 11:21 | Outpatient (RCR) | payer OTHER, SELFPAY ==
[2022-03-20 12:12] VITALS: PULSE 95
== END 2022-04-16 10:49 | disposition home or self-care (01) ==
LOC: ANHOBOP 11:21
PROVIDERS: Visit Provider Advanced Practice Midwife
DX: O16.3 Unspecified maternal hypertension, third trimester (principal); Z3A.33 33 weeks gestation of pregnancy
CPT/HCPCS: 59025

== ENCOUNTER 2022-03-22 17:05 | Outpatient (CLI) | payer OTHER, SELFPAY ==
[2022-03-22 17:31] VITALS: BP 139/85; PULSE 104
[2022-03-22 17:46] VITALS: BP 136/69; PULSE 97
[2022-03-22 17:49] LABS: Basophils Absolute Auto 0.1 K/mm3 (0.0-0.1); Basophils Percent Auto 0.6 % (0.2-1.2); Eosinophils Absolute Auto 0.2 K/mm3 (0-0.3); Eosinophils Percent Auto 1.2 % (0-4.4); Hematocrit 37.2 % (37.0-47.0); Hemoglobin 11.7 g/dL (12.0-15.0); Immature Granulocyte Absolute 0.58 K/mm3 (0.00-0.031); Immature Granulocyte Percent A 4.6 % (0-0.5); Lymphocytes Absolute Auto 2.42 K/mm3 (0.9-3.2); Mean Corpuscular HGB Conc 31.5 g/dl (32-36); Mean Corpuscular Hemoglobin 26.2 pg (26-34); Mean Corpuscular Volume 83.4 fl (80-100); Monocytes Absolute Auto 1.2 K/mm3 (0.1-0.6); Monocytes Percent Auto 9.1 % (2.6-8.5); Neutrophils Absolute Auto 8.3 K/mm3 (1.3-6.7); Neutrophils Percent Auto 65.5 % (45.5-73.1); Platelet Count Result 198 k/mm3 (150-375); Red Blood Count 4.46 M/mm3 (4.2-5.4); Red Cell Distribution Width 19.6 % (11.5-14.5); White Blood Count 12.7 K/mm3 (4.5-10.0)
[2022-03-22 17:54] LABS: Add Urine Microscopic? YES; Appearance Urine Clear (Clear); Bilirubin Urine Negative (Negative); Blood Urine Negative (Negative); Color Urine Yellow (Yellow); Glucose Urine UA Negative (Negative); Ketones Urine Negative (Negative); Leukocyte Esterase Ur 1+ LEU/UL (NEGATIVE); Nitrate Urine Negative (Negative); Protein Urine Negative (Negative); Urobilinogen Urine 0.2 mg/dL (<2.0)
[2022-03-22 17:55] LABS: Creatinine Urine 59.2 mg/dL; Total Protein Urine Random 15 mg/dL; Ur Ttl Prot Creatinine Ratio 0.25 mg/mg (0-0.20)
[2022-03-22 18:01] VITALS: BP 126/66; PULSE 98
[2022-03-22 18:06] LABS: Alanine Aminotransferase 15 U/L (6-35); Albumin Level 3.6 g/dL (3.5-5.1); Alkaline Phosphatase 131 U/L (38-126); Anion Gap 9 mmol/L (8-16); Aspartate Amino Transferase 17 U/L (14-36); Bilirubin,Total 0.4 mg/dL (0.2-1.3); Blood Urea Nitrogen 9 mg/dL (7-17); Carbon Dioxide 21 mmol/L (22-30); Chloride 107 mmol/L (98-107); Estimated Glomerular Filt Rate > 60; Glucose 86 mg/dL (65-110); Potassium 3.8 mmol/L (3.4-5.0); Sodium 137 mmol/L (137-145); Uric Acid 4.8 mg/dL (2.5-7.5)
--- NOTE | 2022-03-22 18:15 | PC.NURSE ---
Called Dr. Reddy with lab results and BPs. No symptoms. Orders received to send pt home with 24hr urine.
[2022-03-22 18:16] VITALS: BP 121/78; PULSE 96
[2022-03-22 18:18] LABS: Bacteria Urine Trace /hpf; Mucus Urine Rare /lpf; RBC Urine 0-2 /hpf (0-2); Squamous Epithelial Cell Urine Many /hpf (Few)
== END 2022-03-22 18:36 | disposition home or self-care (01) ==
LOC: ANHOBOP 17:10 → ANHOBPP 17:14
PROVIDERS: PCP Hospitalist; Visit Provider Obstetrics & Gynecology
DX: M79.89 Other specified soft tissue disorders (principal); O13.9 Gestational [pregnancy-induced] hypertension without significant proteinuria, unspecified trimester; Z3A.00 Weeks of gestation of pregnancy not specified
CPT/HCPCS: 36415; 59025; 80053; 81001; 82570; 84156; 84550; 85025; 87086; 99199

== ENCOUNTER 2022-03-23 20:00 | Outpatient (CLI) | payer OTHER, SELFPAY ==
[2022-03-23 20:32] VITALS: BMI 44.6
[2022-03-23 20:49] LABS: Total Volume 24 Hour Urine 4150 ml
[2022-03-23 20:52] LABS: Specific Gravity Ur 1.015; Total Volume 24 Hour Urine 4150 ml
[2022-03-23 20:59] LABS: Total Protein Urine Random 14 mg/dL
[2022-03-23 21:00] LABS: Total Protein Urine 24 Hr 581 mg/24hr (28-141)
[2022-03-23 21:01] LABS: Creatinine 24 Hour Urine 1.8 gm/24 (0.8-1.8); Creatinine Urine 44.6 mg/dL
== END 2022-03-23 20:01 | disposition home or self-care (01) ==
LOC: ANHOBOP 20:26
PROVIDERS: PCP Hospitalist; Visit Provider Obstetrics & Gynecology
DX: O13.9 Gestational [pregnancy-induced] hypertension without significant proteinuria, unspecified trimester (principal); Z3A.00 Weeks of gestation of pregnancy not specified
CPT/HCPCS: 81050; 82570; 84156

== ENCOUNTER 2022-03-25 11:55 | Outpatient (CLI) | payer OTHER, SELFPAY ==
[2022-03-25] VITALS (12 sets, daily range): BP systolic 120–136; BP diastolic 71–87; PULSE 91–106
--- NOTE | ~2022-03-25 | US_ITS ---
EXAMINATION: US OB limited w BPP DATE: 03/25/2022 14:13 INDICATION: Preeclampsia, third trimester TECHNIQUE: Real-time pelvic ultrasound was performed. The interpreting radiologist was not present fo r the study. COMPARISON: None. FINDINGS: There is a single living fetus in variable presentation. The placenta is anterior. heart rate i s 136 beats per minute (bpm). The amniotic fluid index is 22.8 cm which is normal (normal range: 8.1 cm to 24.8 cm). Biophysical profile performed by the technologist: breathing (30 sec sustained breathing in 30 minutes): 0 out of 2, breathing is observed b ut not sustained for 30 seconds. movement (3 gross body movements in 30 minutes): 2 out of 2 tone (one episode of lyhvfso-eefskqlzy-edacdod limb movement): 2 out of 2 Amniotic fluid pocket (2 cm): 2 out of 2 Total score: 6 out of 8 IMPRESSION: 1. Single living fetus in variable presentation. 2. Biophysical profile 6 out of 8. No points for breathing. Reviewed, dictated and finalized at location A.
[2022-03-25] MEDS: BETAMETHASONE SOD PHOS/ACETATE 30 MG/5 ML VIAL 12 MG IM (14:22)
== END 2022-03-25 15:35 | disposition home or self-care (01) ==
LOC: ANHOBOP 11:59 → ANHOBPP 12:00
PROVIDERS: PCP Hospitalist; Visit Provider Obstetrics & Gynecology
DX: O14.93 Unspecified pre-eclampsia, third trimester (principal); Z3A.00 Weeks of gestation of pregnancy not specified
CPT/HCPCS: 59025; 76815; 76819; 96372; 99199; J0702

== ENCOUNTER 2022-03-26 13:47 | Outpatient (CLI) | payer OTHER, SELFPAY ==
[2022-03-26] MEDS: BETAMETHASONE SOD PHOS/ACETATE 30 MG/5 ML VIAL 12 MG IM (14:05)
== END 2022-03-26 14:13 | disposition home or self-care (01) ==
LOC: ANHOBOP 13:52 → ANHLDR 13:53
PROVIDERS: PCP Hospitalist; Visit Provider Obstetrics & Gynecology
DX: Z34.90 Encounter for supervision of normal pregnancy, unspecified, unspecified trimester (principal); Z3A.00 Weeks of gestation of pregnancy not specified
CPT/HCPCS: 96372; 99199; J0702

== ENCOUNTER 2022-04-13 15:20 | Inpatient (IN) | payer OTHER, SELFPAY ==
[2022-04-13] VITALS (93 sets, daily range): BP systolic 109–168; BP diastolic 62–154; PULSE 75–170; RESP 12–21; TEMP 36.4–36.6; O2SAT 97–100; BMI 46.1
--- OUTSIDE RECORDS SUMMARY | 2022-04-13 15:28 | XMS_ITS | Encounter Summary ---
:1990 Author Care Team Providers Name Role Phone Nahum Siddiqui MD Primary Care Provider [phone] Nahum Siddiqui MD Primary Care Provider [phone] Reason for Visit None recorded. Assessment and Plan 1. Pre-eclampsia ? non-stress test Discussion Note: None recorded.Patient educational handouts: No information available. Plan of Care Reminders Provider Appointments SURG CSection 04/15/2022 1:30PM Solis Turcios MD ? Surg Post Op 04/22/2022 11:00AM Solis Turcios MD Lab None recorded. ? ? Referral None recorded. ? ? Procedures None recorded. ? ? Surgeries None recorded. ? ? Imaging Non-stress Test 04/05/2022 [place] Medications Name Start Date ? ? aspirin ? hydrocodone 5 mg-acetaminophen 325 mg tablet ? Take 2 tablets every 6 hours by oral route. labetalol 100 mg tablet ? TAKE 1 TABLET BY MOUTH TWICE DAILY labetalol 200 mg tablet ? TAKE 2 TABLETS BY MOUTH TWICE DAILY labetalol 300 mg tablet ? ? Medications Administered None recorded. Vitals None recorded. Results Lab Results None recorded. Allergies Code Code System Name Reaction Severity Onset NKDA ? ? ? Notes: NO KNOWN ALLERGIES (Active) Com ment: Location: [facility]; Problems Name Status Onset Date Source ? Hypertensive Disorder Active 09/27/2019 History Active 10/22/2021 ? Procedures Date Name Performed by ? 04/25/2020 Section Information not av
--- OUTSIDE RECORDS SUMMARY | 2022-04-13 15:28 | XMS_ITS | Encounter Summary ---
:1990 Author Care Team Providers Name Role Phone Nahum Siddiqui MD Primary Care Provider [phone] Nahum Siddiqui MD Primary Care Provider [phone] Reason for Visit None recorded. Assessment and Plan 1. Benign essential hypertension compli cating AND/OR reason for care during ? non-stress test Discussion Note: None recorded.Patient educational handouts: No information available. Plan of Care Reminders Provider Appointments SURG CSection 04/15/2022 1:30PM Solis Turcios MD ? Surg Post Op 04/22/2022 11:00AM Solis Turcios MD Lab None recorded. ? ? Referral None recorded. ? ? Procedures None recorded. ? ? Surgeries None recorded. ? ? Imaging Non-stress Test 04/09/2022 [place] Medications Name Start Date ? ? aspirin ? hydrocodone 5 mg-acetaminophen 325 mg tablet ? Take 2 tablets every 6 hours by oral route. labetalol 100 mg tablet ? TAKE 1 TABLET BY MOUTH TWICE DAILY labetalol 200 mg tablet ? TAKE 2 TABLETS BY MOUTH TWICE DAILY labetalol 300 mg tablet ? ? Medications Administered None recorded. Vitals Weight Blood Pressure 268 lbs (1) 149/96 mm[Hg] (2) 144/92 mm[Hg] Results Lab Results None recorded. Allergies Code Code System Name Reaction Severity Onset NKDA ? ? ? Notes: NO KNOWN ALLERGIES (Active) Com ment: Location: [facility]; Problems Name Status Onset Date Source ?
--- OUTSIDE RECORDS SUMMARY | 2022-04-13 15:28 | XMS_ITS ---
:1990 Author Care Team Providers Name Role Phone JESUS SMALL MD Primary Care Provider [phone] JESUS SMALL MD Primary Care Provider [phone] Allergies Code Code System Name Reaction Severity Status Onset NKDA ? Notes: NO KNOWN ALLERGIES (Active) Com ment: Location: [facility]; Medications Name Status Start Date Stop Date ? ? Adacel (Tdap Adolesn/Adult)(PF)2Lf-(2.5-5-3-5mcg)-5 Completed ? 05/19/2020 Lf/0.5 mL IM susp Aspir-81 mg tablet,delayed release Completed ? 05/02/2020 Take 1 tablet every day by oral route. aspirin Active ? Not available cyclobenzaprine 10 mg tablet Completed ? hydrocodone 5 mg-acetaminophen 325 mg tablet Active ? Not available iron Completed ? 02/14/2021 labetalol 100 mg tablet Active ? Not avai lable TAKE 1 TABLET BY MOUTH TWICE DAILY labetalol 200 mg tablet Active ? Not avai lable labetalol 300 mg tablet Active ? Not avai lable Motrin Completed ? 09/26/2021 Nystop 100,000 unit/gram topical powder Completed ? 09/26/2021 SADIQ AA BID UTD Active ? Not available sertraline 50 mg tablet Completed ? 02/15/20 21 Stool Softener Completed ? 02/14/2021 Problems Name Status Onset Date Source ? Hypertensive Disorder Active 09/27/2019 History Detection Examination Unknown 09/27/2019 History Hemorrhagic Complication of Unknown 10/04/2019 History Gestation Period, 9 Weeks Unknown 10/04/2019 Histor y Rubella Screening Status Unknown 10/26/2019 History Screening Unknown 10/26/2019 History
--- OUTSIDE RECORDS SUMMARY | 2022-04-13 15:28 | XMS_ITS | Encounter Summary ---
:1990 Author Care Team Providers Name Role Phone Nahum Siddiqui MD Primary Care Provider [phone] Nahum Siddiqui MD Primary Care Provider [phone] Reason for Visit OB visit Assessment and Plan Assessment Note Patient is ___weeks . Discussed plan. 1. Pre-eclampsia Discussion Note: None recorded.Patient educational handouts: No information available. Plan of Care Reminders Provider Appointments SURG CSection 04/15/2022 1:30PM Solis Turcios MD ? Surg Post Op 04/22/2022 11:00AM Solis Turcios MD Lab None recorded. ? ? Referral None recorded. ? ? Procedures None recorded. ? ? Surgeries None recorded. ? ? Imaging None recorded. ? ? Medications Name Start Date ? ? aspirin ? hydrocodone 5 mg-acetaminophen 325 mg tablet ? Take 2 tablets every 6 hours by oral route. labetalol 100 mg tablet ? TAKE 1 TABLET BY MOUTH TWICE DAILY labetalol 200 mg tablet ? TAKE 2 TABLETS BY MOUTH TWICE DAILY labetalol 300 mg tablet ? ? Medications Administered None recorded. Vitals Height Weight BMI Blood Pressure 5 ft 4.25 in 266 lbs 45.3 kg/m2 136/81 mm[Hg] Results Lab Results None recorded. Allergies Code Code System Name Reaction Severity Onset NKDA ? ? ? Notes: NO KNOWN ALLERGIES (Active) Com ment: Location: [facility]; Problems Name Status Onset Date Source ? Hypertensive Disorder Active 09/27/2019 History
--- OUTSIDE RECORDS SUMMARY | 2022-04-13 15:28 | XMS_ITS | Encounter Summary ---
:1990 Author Care Team Providers Name Role Phone Nahum Siddiqui MD Primary Care Provider [phone] Nahum Siddiqui MD Primary Care Provider [phone] Reason for Visit None recorded. Assessment and Plan 1. condition affecting obstetrica l care of mother ? US, obstetric, biophysical profile + non-stress test Discussion Note: None recorded.Patient educational handouts: No information available. Plan of Care Reminders Provider Appointments SURG CSection 04/15/2022 Solis purvis MD 1:30PM ? Surg Post Op 04/22/2022 Solis purvis MD 11:00AM Lab None recorded. ? ? Referral None recorded. ? ? Procedures None recorded. ? ? Surgeries None recorded. ? ? Imaging US, Obstetric, Biophysical 04/12/2022 [facility] Profile + Non-stress Test Medications Name Start Date ? ? aspirin [...] NO KNOWN ALLERGIES (Active) Com ment: Location: [facility]; Problems Name Status Onset Date Source ? Hypertensive Disorder
--- OUTSIDE RECORDS SUMMARY | 2022-04-13 15:28 | XMS_ITS | Encounter Summary ---
:1990 Author Care Team Providers Name Role Phone Nahum Siddiqui MD Primary Care Provider [phone] Nahum Siddiqui MD Primary Care Provider [phone] Reason for Visit None recorded. Assessment and Plan Assessment Note Unable to get patient on NST stefanygKorey Turcios stated that it is okay to move forward with BPP. Discussion Note: None recorded.Patient educational handouts: No [...] NO KNOWN ALLERGIES (Active) Com ment: Location: [facility]; Problems Name Status Onset Date Source ? Hypertensive Disorder Active 09/27/2019 History Active 10/22/2021 ? Procedures Date Name
--- OUTSIDE RECORDS SUMMARY | 2022-04-13 15:28 | XMS_ITS | Encounter Summary ---
:1990 Author Care Team Providers Name Role Phone Nahum Siddiqui MD Primary Care Provider [phone] Nahum Siddiqui MD Primary Care Provider [phone] Reason for Visit OB visit Assessment and [...] BMI Blood Pressure 5 ft 4.25 in 271 lbs 46.2 kg/m2 (1) 154/93 mm[H g] (2) 152/92 mm[Hg ] Results Lab Results None recorded. Allergies Code Code System Name Reaction Severity Onset NKDA ? ? ? Notes: NO KNOWN ALLERGIES (Active) Com ment: Location: [facility]; Problems Name Status Onset Date Source ?
--- OUTSIDE RECORDS SUMMARY | 2022-04-13 15:28 | XMS_ITS | Encounter Summary ---
:1990 Author Care Team Providers Name Role Phone Nahum Siddiqui MD Primary Care Provider [phone] Nahum Siddiqui MD Primary Care Provider [phone] Reason for Visit None recorded. Assessment and Plan 1. History of pre-eclampsia ? non-stress test Discussion Note: None recorded.Patient educational handouts: No information available. Plan of Care Reminders Provider Appointments SURG CSection 04/15/2022 1:30PM Solis Turcios MD ? Surg Post Op 04/22/2022 11:00AM Solis Turcios MD Lab None recorded. ? ? Referral None recorded. ? ? Procedures None recorded. ? ? Surgeries None recorded. ? ? Imaging Non-stress Test 04/02/2022 [place] Medications Name Start Date ? ? aspirin [...] NO KNOWN ALLERGIES (Active) Com ment: Location: [facility]; Problems Name Status Onset Date Source ? Hypertensive Disorder Active 09/27/2019 History Active 10/22/2021 ? Procedures Date Name Performed by ? 04/25/2020 Section [employer]
--- OUTSIDE RECORDS SUMMARY | 2022-04-13 15:28 | XMS_ITS | Encounter Summary ---
:1990 Author Care Team Providers Name Role Phone Nahmu Siddiqui MD Primary Care Provider [phone] Nahum Siddiqui MD Primary Care Provider [phone] Reason for Visit None recorded. Assessment and Plan 1. Polyhydramnios ? US, obstetric, biophysical profile Discussion Note: None recorded.Patient educational handouts: No information available. Plan of Care Reminders Provider Appointments SURG CSection 04/15/2022 Solis purvis MD 1:30PM ? Surg Post Op 04/22/2022 Solis purvis MD 11:00AM Lab None recorded. ? ? Referral None recorded. ? ? Procedures None recorded. ? ? Surgeries None recorded. ? ? Imaging US, Obstetric, Biophysical 04/09/2022 [facility] Profile Medications Name Start Date ? ? aspirin [...] NO KNOWN ALLERGIES (Active) Com ment: Location: [facility]; Problems Name Status Onset Date Source ? Hypertensive Disorder Active 09/27/2019 History
--- OUTSIDE RECORDS SUMMARY | 2022-04-13 15:29 | XMS_ITS | Encounter Summary ---
:1990 Author Care Team Providers Name Role Phone Nahum Siddiqui MD Primary Care Provider [phone] Nahum Siddiqui MD Primary Care Provider [phone] Reason for Visit None recorded. Assessment and Plan 1. Chronic hypertension complicating AN D/OR reason for care during ? US, obstetric, biophysical profile + non-stress test Discussion Note: None recorded.Patient educational handouts: No information available. Plan of Care Reminders Provider Appointments SURG CSection 04/15/2022 Solis purvis MD 1:30PM ? Surg Post Op 04/22/2022 Solis purvis MD 11:00AM Lab None recorded. ? ? Referral None recorded. ? ? Procedures None recorded. ? ? Surgeries None recorded. ? ? Imaging US, Obstetric, Biophysical 03/20/2022 [facility] Profile + Non-stress Test Medications Name Start [...] NO KNOWN ALLERGIES (Active) Com ment: Location: [facility]; Problems Name Status Onset Date Source ? H
--- OUTSIDE RECORDS SUMMARY | 2022-04-13 15:29 | XMS_ITS | Encounter Summary ---
:1990 Author Care Team Providers Name Role Phone Nahum Siddiqui MD Primary Care Provider [phone] Nahum Siddiqui MD Primary Care Provider [phone] Reason for Visit OB visit OB [id number] EDC 05/05/2022 LMP 07/29/2021 Assessment and Plan Assessment Note Patient is 30___weeks . Discuss ed plan. 1. Routine care 2. Large for gestation age fetus Discussion Note: None recorded.Patient educational handouts: No [...] BMI Blood Pressure 5 ft 4.25 in 255 lbs 43.4 kg/m2 140/88 mm[Hg] Results Lab Results None recorded. Allergies Code Code System Name Reaction Severity Onset NKDA ? ? ? Notes: NO KNOWN ALLERGIES (Active) Com ment: Location: [facility]; Problems
--- OUTSIDE RECORDS SUMMARY | 2022-04-13 15:29 | XMS_ITS | Encounter Summary ---
:1990 Author Care Team Providers Name Role Phone Nahum Siddiqui MD Primary Care Provider [phone] Nahum Siddiqui MD Primary Care Provider [phone] Reason for Visit None recorded. Assessment and Plan 1. Routine care Discussion Note: None recorded.Patient educational handouts: No [...] NO KNOWN ALLERGIES (Active) Com ment: Location: [facility]; Problems Name Status Onset Date Source ? Hypertensive Disorder Active 09/27/2019 History Active 10/22/2021 ? Procedures Date Name Performed by ? 04/25/2020 Section Information not avai lable ? [facility]
--- OUTSIDE RECORDS SUMMARY | 2022-04-13 15:29 | XMS_ITS | Encounter Summary ---
:1990 Author Care Team Providers Name Role Phone Nahum Siddiqui MD Primary Care Provider [phone] Nahum Siddiqui MD Primary Care Provider [phone] Reason for Visit OB visit Assessment and Plan Assessment Note Patient is ___weeks . Discussed plan. 1. Routine care Discussion Note: None recorded.Patient [...] BMI Blood Pressure 5 ft 4.25 in 267 lbs 45.5 kg/m2 142/87 mm[Hg] Results Lab Results None recorded. Allergies Code Code System Name Reaction Severity Onset NKDA ? ? ? Notes: NO KNOWN ALLERGIES (Active) Com ment: Location: [facility]; Problems Name Status Onset Date Source ? Hypertensive Disorder Active 09/27/2019 History
--- OUTSIDE RECORDS SUMMARY | 2022-04-13 15:29 | XMS_ITS | Encounter Summary ---
:1990 Author Care Team Providers Name Role Phone Nahum Siddiqui MD Primary Care Provider [phone] Nahum Siddiqui MD Primary Care Provider [phone] Reason for Visit None recorded. Assessment and Plan 1. Benign essential hypertension compli cating , childbirth and the puerperium - not delivered ? non-stress test Discussion Note: None recorded.Patient educational handouts: No information available. Plan of Care Reminders Provider Appointments SURG CSection 04/15/2022 1:30PM Solis Turcios MD ? Surg Post Op 04/22/2022 11:00AM Solis Turcios MD Lab None recorded. ? ? Referral None recorded. ? ? Procedures None recorded. ? ? Surgeries None recorded. ? ? Imaging Non-stress Test 03/20/2022 [place] Medications Name Start Date ? ? aspirin [...]
--- OUTSIDE RECORDS SUMMARY | 2022-04-13 15:29 | XMS_ITS | Encounter Summary ---
:1990 Author Care Team Providers Name Role Phone Nahum Siddiqui MD Primary Care Provider [phone] Nahum Siddiqui MD Primary Care Provider [phone] Reason for Visit OB visit Assessment and Plan Assessment Note Patient is ___weeks . Discussed plan. 1. section following previous section ? section (SURG) Discussion Note: None recorded.Patient educational handouts: No information available. Plan of Care Reminders Provider Appointments SURG CSection 04/15/2022 1:30PM Solis Turcios MD ? Surg Post Op 04/22/2022 Solis purvis MD 11:00AM Lab None recorded. ? ? Referral None recorded. ? ? Procedures None recorded. ? ? Surgeries Section (SURG) 04/15/2022 [facility] None recorded. ? ? Medications Name [...] ft 4.25 in 266 lbs 45.3 kg/m2 (1) 144/84 mm[H g] (2) 146/93 mm[Hg ] (3) 139/80 mm[Hg ] Results Lab Results None recorded. Allergies Code Code Sy
--- OUTSIDE RECORDS SUMMARY | 2022-04-13 15:29 | XMS_ITS | Encounter Summary ---
:1990 Author Care Team Providers Name Role Phone Nahum Siddiqui MD Primary Care Provider [phone] Nahum Siddiqui MD Primary Care Provider [phone] Reason for Visit None recorded. Assessment and Plan 1. Large for gestation age fetus ? US, obstetric, follow-up Discussion Note: None recorded.Patient educational handouts: No information available. Plan of Care Reminders Provider Appointments SURG CSection 04/15/2022 Solis purvis MD 1:30PM ? Surg Post Op 04/22/2022 Solis purvis MD 11:00AM Lab None recorded. ? ? Referral None recorded. ? ? Procedures None recorded. ? ? Surgeries None recorded. ? ? Imaging US, Obstetric, Follow-up 03/01/2022 [place] Medications Name Start Date ? ? aspirin [...] KNOWN ALLERGIES (Active) Com ment: Location: [facility]; Problems Name Status Onset Date Source ? Hypertensive Disorder Active 09/27/2019 History Active 10/22/2021 ? Procedures
--- OUTSIDE RECORDS SUMMARY | 2022-04-13 15:29 | XMS_ITS | Encounter Summary ---
:1990 Author Care Team Providers Name Role Phone Nahum Siddiqui MD Primary Care Provider [phone] Nahum Siddiqui MD Primary Care Provider [phone] Reason for Visit None recorded. Assessment and [...] recorded. ? ? Imaging US, Obstetric, Biophysical 03/29/2022 [facility] Profile + Non-stress Test Medications [...] NO KNOWN ALLERGIES (Active) Com ment: Location: [facility]; Problems Name Status Onset Date Source ? Hypertensive Disorder
--- OUTSIDE RECORDS SUMMARY | 2022-04-13 15:29 | XMS_ITS | Encounter Summary ---
:1990 Author Care Team Providers Name Role Phone Nahum Siddiqui MD Primary Care Provider [phone] Nahum Siddiqui MD Primary Care Provider [phone] Reason for Visit None recorded. Assessment and [...] None recorded. ? ? Imaging Non-stress Test 03/15/2022 [place] Medications Name Start Date ? ? aspirin [...] NO KNOWN ALLERGIES (Active) Com ment: Location: [facility]; Problems Name Status Onset Date Source ? Hypertensive Disorder Active 09/27/2019 History Active 10/22/2021 ? Procedures Date
--- OUTSIDE RECORDS SUMMARY | 2022-04-13 15:29 | XMS_ITS | Encounter Summary ---
:1990 Author Care Team Providers Name Role Phone Nahum Siddiqui MD Primary Care Provider [phone] Nahum Siddiqui MD Primary Care Provider [phone] Reason for Visit None recorded. Assessment and Plan 1. Chronic hypertension complicating AN D/OR reason for care during ? non-stress test Discussion Note: None recorded.Patient educational handouts: No information available. Plan of Care Reminders Provider Appointments SURG CSection 04/15/2022 1:30PM Solis Turcios MD ? Surg Post Op 04/22/2022 11:00AM Solis Turcios MD Lab None recorded. ? ? Referral None recorded. ? ? Procedures None recorded. ? ? Surgeries None recorded. ? ? Imaging Non-stress Test 03/29/2022 [place] Medications Name Start Date ? ? aspirin [...] NO KNOWN ALLERGIES (Active) Com ment: Location: [facility]; Problems Name Status Onset Date Source ? Hypertensive Disorder Active 09/27/2019 History Active 10/22/2021 ? Procedures Date Name Performed by ?
--- OUTSIDE RECORDS SUMMARY | 2022-04-13 15:29 | XMS_ITS | Encounter Summary ---
:1990 Author Care Team Providers Name Role Phone Nahum Siddiqui MD Primary Care Provider [phone] Nahum Siddiqui MD Primary Care Provider [phone] Reason for Visit None recorded. Assessment and [...] None recorded. ? ? Imaging Non-stress Test 03/27/2022 [place] Medications Name Start Date ? ? aspirin [...] NO KNOWN ALLERGIES (Active) Com ment: Location: [facility]; Problems Name Status Onset Date Source ? Hypertensive Disorder Active 09/27/2019 History Active 10/22/2021 ? Procedures Date
--- OUTSIDE RECORDS SUMMARY | 2022-04-13 15:29 | XMS_ITS | Encounter Summary ---
:1990 Author Care Team Providers Name Role Phone Nahum Siddiqui MD Primary Care Provider [phone] Nahum Siddiqui MD Primary Care Provider [phone] Reason for Visit None recorded. Assessment and [...] recorded. ? ? Imaging US, Obstetric, Biophysical 04/02/2022 [facility] Profile + Non-stress Test Medications [...] NO KNOWN ALLERGIES (Active) Com ment: Location: [facility]; Problems Name Status Onset Date Source ? H
--- OUTSIDE RECORDS SUMMARY | 2022-04-13 15:29 | XMS_ITS | Encounter Summary ---
:1990 Author Care Team Providers Name Role Phone Nahum Siddiqui MD Primary Care Provider [phone] Nahum Siddiqui MD Primary Care Provider [phone] Reason for Visit None recorded. Assessment and [...] recorded. ? ? Imaging US, Obstetric, Biophysical 03/15/2022 [facility] Profile + Non-stress Test Medications [...] NO KNOWN ALLERGIES (Active) Com ment: Location: [facility]; Problems Name Status Onset Date Source ? H
--- OUTSIDE RECORDS SUMMARY | 2022-04-13 15:29 | XMS_ITS | Encounter Summary ---
:1990 Author Care Team Providers Name Role Phone Nahum Siddiqui MD Primary Care Provider [phone] Nahum Siddiqui MD Primary Care Provider [phone] Reason for Visit None recorded. Assessment and Plan 1. Chronic hypertension complicating AN D/OR reason for care during ? US, obstetric, follow-up ? US, obstetric, biophysical profile + non-stress test Discussion Note: None recorded.Patient educational handouts: No information available. Plan of Care Reminders Provider Appointments SURG CSection 04/15/2022 Solis purvis MD 1:30PM ? Surg Post Op 04/22/2022 Solis purvis MD 11:00AM Lab None recorded. ? ? Referral None recorded. ? ? Procedures None recorded. ? ? Surgeries None recorded. ? ? Imaging US, Obstetric, Follow-up 03/27/2022 [place] ? US, Obstetric, Biophysical 03/27/2022 [place] Profile + Non-stress Test Medications Name Start [...] Notes: NO KNOWN ALLERGIES (Active) Com ment: [place]
--- OUTSIDE RECORDS SUMMARY | 2022-04-13 15:30 | XMS_ITS | Encounter Summary ---
:1990 Author Care Team Providers Name Role Phone Nahum Siddiqui MD Primary Care Provider [phone] Nahum Siddiqui MD Primary Care Provider [phone] Reason for Visit OB visit OB [id number] EDC 05/05/2022 LMP 07/29/2021 Assessment and Plan Assessment Note Patient is 28___weeks . Discuss ed plan. 1. Routine care Discussion Note: None [...] BMI Blood Pressure 5 ft 4.25 in 249 lbs 42.4 kg/m2 125/83 mm[Hg] Results Lab Results None recorded. Allergies Code Code System Name Reaction Severity Onset NKDA ? ? ? Notes: NO KNOWN ALLERGIES (Active) Com ment: Location: [facility]; Problems Name Status Onset Date Source ?
--- OUTSIDE RECORDS SUMMARY | 2022-04-13 15:30 | XMS_ITS | Encounter Summary ---
:1990 Author Care Team Providers Name Role Phone Nahum Siddiqui MD Primary Care Provider [phone] Nahum Siddiqui MD Primary Care Provider [phone] Reason for Visit None recorded. Assessment and Plan 1. Chronic hypertension complicating AN D/OR reason for care during ? US, obstetric, follow-up Discussion Note: None recorded.Patient educational handouts: No information available. Plan of Care Reminders Provider Appointments SURG CSection 04/15/2022 Solis purvis MD 1:30PM ? Surg Post Op 04/22/2022 Solis purvis MD 11:00AM Lab None recorded. ? ? Referral None recorded. ? ? Procedures None recorded. ? ? Surgeries None recorded. ? ? Imaging US, Obstetric, Follow-up 02/15/2022 [place] Medications Name Start Date ? ? aspirin [...] NO KNOWN ALLERGIES (Active) Com ment: Location: [facility]; Problems Name Status Onset Date Source ? Hypertensive Disorder Active 09/27/2019 History Active
--- OUTSIDE RECORDS SUMMARY | 2022-04-13 15:30 | XMS_ITS | Encounter Summary ---
:1990 Author Care Team Providers Name Role Phone Nahum Siddiqui MD Primary Care Provider [phone] Nahum Siddiqui MD Primary Care Provider [phone] Reason for Visit None recorded. Assessment and Plan 1. Low lying placenta ? US, obstetric, follow-up Discussion Note: None recorded.Patient educational handouts: No information available. Plan of Care Reminders Provider Appointments SURG CSection 04/15/2022 Solis purvis MD 1:30PM ? Surg Post Op 04/22/2022 Solis purvis MD 11:00AM Lab None recorded. ? ? Referral None recorded. ? ? Procedures None recorded. ? ? Surgeries None recorded. ? ? Imaging US, Obstetric, Follow-up 01/23/2022 [place] Medications Name Start Date ? [...] NO KNOWN ALLERGIES (Active) Com ment: Location: [facility]; Problems Name Status Onset Date Source ? Hypertensive Disorder Active 09/27/2019 History Active 10/22/2021 ? Procedures
--- OUTSIDE RECORDS SUMMARY | 2022-04-13 15:30 | XMS_ITS | Encounter Summary ---
:1990 Author Care Team Providers Name Role Phone Nahum Siddiqui MD Primary Care Provider [phone] Nahum Siddiqui MD Primary Care Provider [phone] Reason for Visit OB visit OB [id number] EDC 05/05/2022 LMP 07/29/2021 Assessment and Plan Assessment Note Patient is _25__weeks . Discuss ed plan. 1. Routine care [...] BMI Blood Pressure 5 ft 4.25 in 243 lbs 41.4 kg/m2 135/85 mm[Hg] Results Lab Results None recorded. Allergies Code Code System Name Reaction Severity Onset NKDA ? ? ? Notes: NO KNOWN ALLERGIES (Active) Com ment: Location: [facility]; Problems Name Status Onset Date Source ?
--- NOTE | 2022-04-13 15:38 | WPDANESEPP ---
Anes - Eval Pre Procedure Procedure: Operation Date: 04/15/22 13:30 Proposed Procedures p Repeat Section - Evan Turcios MD Date/Time: 04/13/22 15:38 Surgeon: Karolina Pre Op Diagnosis: scheduled section Patient Data Age: 31 Gender: F Height: Weight: Allergies Allergy/AdvReac Type Severity Reaction Status Date / Time No Known Allergies Allergy Verified 04/05/20 12:37 Home Medications Medication Instructions Recorded Confirmed Type vit no.95-ferrous 1 tablet PO DAILY 04/05/20 05/05/20 History fumarate 28 mg-folic acid 800 mcg tablet () hydrocodone 5 mg-acetaminophen 325 1 tab PO Q3H PRN Moderate Pain 04/28/20 05/05/20 Rx mg tablet (4-6) #20 tabs polysaccharide iron complex 150 mg 150 mg PO BIDWM #30 caps 04/28/20 05/05/20 Rx iron capsule docusate sodium 100 mg capsule 100 mg PO BID 04/29/20 05/05/20 History (Dulcolax Stool Softener (docusate)) ibuprofen 600 mg tablet 600 mg PO Q6H PRN Pain 04/29/20 05/05/20 Rx labetalol 100 mg tablet 400 mg PO Q12H #240 tabs 05/06/20 Rx sertraline 50 mg tablet (Zoloft) 50 mg PO QAM #30 tabs 05/06/20 Rx Patient hx anesthesia problems: none Family hx anesthesia problems: none Prior surgeries: C/S Results Review: All pre-operative results and documents have been reviewed as part of the pre-operative evaluation. [facility] Past Medical History Medical History (Updated 05/24/20 @ 11:52 by Evan Turcios MD) delivery delivered 04/25/20, c/s, 38w3d, male, 8#9, GHTN, Intrapartum bleeding, failure to descend Gestational HTN Migraines Morbid obesity Surgical History Surgical History (Updated 04/13/22 @ 15:42 by Emery Combs CRNA) delivery delivered Family History Family History Father Hx of CABG Hypertension Grandparent Hx of CABG Borderline type 2 diabetes mellitus Hypertension Social History Social History Smoking status: Never smoker Second hand tobacco smoke exposure: No Substance use: never Spiritual care concerns: No Exam Day of Procedure 04/13/22 15:38 Patient weight: morbidly obese Heart: regular rate and rhythm Lungs: clear to auscultation and normal air movement Airway: Mallampati scale class II Neurological: alert and oriented
--- NOTE | 2022-04-13 16:05 | LDADM ---
This patient, Kaye Dash, was admitted to Labor/Delivery/Recovery 120 on 04/13/22 at 15:20. Plans for labor, pain management and were discussed with patient. Patient/family oriented to hospital policies and general routines including ID bracelet, bed and alarms, visiting hours, pain management, procedures, bathroom and other care routines, personal items, smoking policy, room service/diet and guest tray routines, security routines, and visiting hours. Patient/Family are encouraged to report perceived risks to care and to ask questions if they do not understand what they are told or what they should do. See OBIX for further documentation.
[2022-04-13 16:10] LABS: Basophils Absolute Auto 0.1 K/mm3 (0.0-0.1); Basophils Percent Auto 0.5 % (0.2-1.2); Eosinophils Absolute Auto 0.1 K/mm3 (0-0.3); Eosinophils Percent Auto 0.6 % (0-4.4); Hemoglobin 13.2 g/dL (12.0-15.0); Immature Granulocyte Percent A 2.1 % (0-0.5); Lymphocytes Absolute Auto 1.95 K/mm3 (0.9-3.2); Lymphocytes Percent Auto 13.8 % (18.3-44.2); Mean Corpuscular Hemoglobin 26.6 pg (26-34); Mean Corpuscular Volume 80.6 fl (80-100); Mean Platelet Volume 9.9 fl (7.4-10.4); Monocytes Absolute Auto 0.9 K/mm3 (0.1-0.6); Monocytes Percent Auto 6.5 % (2.6-8.5); Neutrophils Absolute Auto 10.8 K/mm3 (1.3-6.7); Neutrophils Percent Auto 76.5 % (45.5-73.1); Platelet Count Result 206 k/mm3 (150-375); Red Blood Count 4.96 M/mm3 (4.2-5.4); Red Cell Distribution Width 19.2 % (11.5-14.5); White Blood Count 14.2 K/mm3 (4.5-10.0)
[2022-04-13] MEDS: LACTATED RINGERS 1,000 ML 75 ML IV CONT (16:14)
[2022-04-13] MEDS: MAGNESIUM SULF 4 GM/WATER100ML 4 GM/100 ML BAG IVPB (16:15)
[2022-04-13 16:25] LABS: Alanine Aminotransferase 18 U/L (6-35); Albumin Level 3.9 g/dL (3.5-5.1); Alkaline Phosphatase 168 U/L (38-126); Anion Gap 10 mmol/L (8-16); Aspartate Amino Transferase 22 U/L (14-36); Bilirubin,Total 0.7 mg/dL (0.2-1.3); Blood Urea Nitrogen 15 mg/dL (7-17); Calcium 9.3 mg/dL (8.4-10.2); Carbon Dioxide 18 mmol/L (22-30); Chloride 107 mmol/L (98-107); Estimated CRCL calculation 147 ml/min; Estimated Glomerular Filt Rate > 60; Glucose 73 mg/dL (65-110); Potassium 4.1 mmol/L (3.4-5.0); Sodium 135 mmol/L (137-145); Uric Acid 7.1 mg/dL (2.5-7.5)
[2022-04-13] MEDS: MAGNESIUM SULF 20GM/WATER500ML 500 ML 50 MG IV CONT (16:46)
--- NOTE | 2022-04-13 18:06 | PM.IMHP ---
H&P: [facility] History of Present Illness Date/Time: 04/13/22 18:06 Chief Complaint: Painful contractions Narrative: This patient is a 31-year-old multiparous female at 36 weeks and 5 days gestation with previous . Who presents for painful contractions and preeclampsia. She has been preeclamptic for almost 2 weeks. She measure blood pressures today is in the 160s over 90s. She denies any loss of fluid or vaginal bleeding. She denies any chest pain or shortness of breath. She does report some headache. She has had some visual changes recently. We have agreed repeat . She understands the delivery has risk. She understands that surgery can result in injuries. She understands injuries can result in hospitalization, more surgery, severe illness. Review of Systems Review of Systems: All systems reviewed & are unremarkable except as noted in HPI and below Constitutional: Constitutional: Denies chills, Denies fatigue, Denies fever(s) and Denies weakness Eyes: Eyes: Denies blurry vision, Denies change in vision, Denies loss of peripheral vision, Denies loss of vision, Denies other visual disturbances and Denies eye pain ENT: Denies vertigo, Denies dizziness, Denies hearing loss, Denies mouth pain, Denies nasal obstruction, Denies neck mass and Denies neck pain Cardiovascular: Cardiovascular: Denies chest pain, Denies diaphoresis, Denies syncope, Denies leg edema and Denies dyspnea Respiratory: Respiratory: Denies chest congestion, Denies cough, Denies hemoptysis, Denies dyspnea and Denies wheezing Gastrointestinal: Gastrointestinal: Denies abdominal pain, Denies constipation, Denies diarrhea, Denies nausea and Denies vomiting Genitourinary: Genitourinary: Denies hematuria, Denies change in libido, Denies nocturia, Denies genital lesions, Denies flank pain and Denies urinary urgency Musculoskeletal: Musculoskeletal: Denies abnormal gait, Denies back pain, Denies myalgias, Denies arthralgias, Denies joint swelling, Denies muscle weakness and Denies neck pain Integumentary/Breasts: Skin/Breast: Denies swelling, Denies breast pain, Denies breast mass, Denies dry skin, Denies nipple discharge, Denies unusual bruising and Denies jaundice Neurologic: Denies Neuro-related abnormal movements, Denies Abnormal speech present, Denies abnormal gait, Denies behavioral changes, Denies confusion, Denies vertigo, Denies dizziness, Denies syncope, Denies loss of vision, Denies memory loss, Denies convulsions and Denies weakness Psychiatric: Psychiatric: Denies abnormal sleep pattern, Denies behavioral changes, Denies change in libido, Denies confusion, Denies depression, Denies anhedonia and Denies memory loss Endocrine: Endocrine: Reports no additional endocrine complaints, Denies change in libido and Denies fatigue Hematologic/Lymphatic: Hematologic/Lymphatic: Reports no additional hematologic/lymphatic complaints Allergic/Immunologic: Allergic/Immunologic: Reports no additional allergic/immunologic complaints and Denies wheezing PMFSH Past Medical History Medical History (Updated 04/13/22 @ 18:10 by Evan Turcios MD) delivery delivered 04/25/20, c/s, 38w3d, male, 8#9, GHTN, Intrapartum bleeding, failure to descend Gestational HTN Migraines Morbid obesity Surgical History Surgical History (Updated 04/13/22 @ 18:10 by Evan Turcios MD) delivery delivered Family History Family History Father Hx of CABG Hypertension Grandparent Hx of CABG Borderline type 2 diabetes mellitus Hypertension Social History Social History Smoking status: Never smoker Second hand tobacco smoke exposure: No Substance use: never Spiritual care concerns: No Meds Home Medications and Allergies Home Medications Medication Instructions Recorded Confirmed Type vit no.95-liz
--- NOTE | 2022-04-13 18:12 | WPDHPUPDATE1 ---
History and Physical Update Update Date/Time: 04/13/22 18:12 History and Physical has been reviewed, including an updated exam of the patient. There are NO changes in the patient's condition. Risks, benefits, and alternatives have been discussed and questions answered. Patient agrees to proceed with procedure.
[2022-04-13] MEDS: ceFAZolin 3 GM/D5W 100 ML 100 ML IVPB (18:17)
[2022-04-13] MEDS: KETOROLAC 30 MG/ML VIAL (*BKC) 15 MG IV PUSH (18:54)
--- NOTE | 2022-04-13 19:35 | W.PM.PROC2 ---
Procedure Note - Detailed Date of Procedure 04/13/22 Pre-op Diagnosis Severe preeclampsia, labor, 36 week gestation Post-op Diagnosis Same Procedure Performed Low-transverse section Surgeon Evan Turcios MD Anesthesia Spinal Findings Normal gestational maternal anatomy, average size infant, normal Apgars. Description of Procedure The patient was taken the operating room. She was prepped and draped in dorsal supine position with a leftward tilt. This was done after spinal anesthetic was applied. A low-transverse skin incision was made and carried down till of the fascia with the knife. The fascial incision was made with the knife. The fascial incision was extended laterally with Adams scissors. The fascia was tented upward superiorly and inferiorly the rectus muscles were dissected off bluntly. The rectus muscles were the midline. The preperitoneal fat and peritoneum were dissected open bluntly at the superior aspect of the rectus muscles. The peritoneal incision was extended superior and inferior with good position of bladder. The uterine incision was made with a scalpel down to the level of the amniotic cavity. The amniotic cavity was entered bluntly. The infant was delivered. The cord was clamped and cut and the infant was handed off to waiting pediatric staff. Cord bloods were obtained. The placenta was removed manually. The uterus was exteriorized. The uterus was cleared of all clots, debris and membranes. The uterus was closed in 0 Vicryl running lock fashion. An imbricating over a was placed along the incision line as well. The uterus was returned to the abdomen. The gutters were cleared of all clots and debris. The fascia was closed with 0 Vicryl running fashion. The subcutaneous tissue was irrigated pinpoint bleeders were cauterized. The skin was closed with subcuticular absorbable bryant. The skin incision line was covered with glue. The patient tolerated the procedure well. She has taken recovery room in stable condition. Sponge lap and needle counts were correct x2. Complications No immediate complications Condition Stable Disposition PACU
[2022-04-13] MEDS: fentaNYL CITRATE INJ (*CRX) 100 MCG/2 ML VIAL 25 MCG IV PUSH (21:23)
--- NOTE | 2022-04-13 21:54 | PC.NURSE ---
report given to nurse MADDIE Lipscomb
[2022-04-13] MEDS: ONDANSETRON INJ 4 MG/2 ML VIAL IV PUSH (22:10)
[2022-04-13] MEDS: OXYTOCIN 30 UNITS/NS 500 ML 30 UNITS/500 ML BAG 125 UNITS IV CONT (22:27)
[2022-04-14] MEDS: MAGNESIUM SULF 20GM/WATER500ML 500 ML 50 MG IV CONT ×2 (02:35→11:56)
[2022-04-14] MEDS: LACTATED RINGERS 1,000 ML 75 ML (02:45)
[2022-04-14 04:49] VITALS: BP 121/75; PULSE 91; RESP 16; TEMP 36.6
[2022-04-14] MEDS: ONDANSETRON INJ 4 MG/2 ML VIAL IV PUSH (04:58)
[2022-04-14] MEDS: KETOROLAC 30 MG/ML VIAL (*BKC) IV PUSH ×2 (04:58→11:18)
[2022-04-14 05:22] LABS: Basophils Percent Auto 0.3 % (0.2-1.2); Eosinophils Absolute Auto 0.1 K/mm3 (0-0.3); Eosinophils Percent Auto 0.4 % (0-4.4); Hematocrit 32.3 % (37.0-47.0); Hemoglobin 10.4 g/dL (12.0-15.0); Immature Granulocyte Absolute 0.21 K/mm3 (0.00-0.031); Immature Granulocyte Percent A 1.6 % (0-0.5); Lymphocytes Absolute Auto 1.39 K/mm3 (0.9-3.2); Lymphocytes Percent Auto 10.3 % (18.3-44.2); Mean Corpuscular HGB Conc 32.2 g/dl (32-36); Mean Corpuscular Hemoglobin 26.7 pg (26-34); Mean Corpuscular Volume 82.8 fl (80-100); Mean Platelet Volume 9.7 fl (7.4-10.4); Monocytes Absolute Auto 0.9 K/mm3 (0.1-0.6); Monocytes Percent Auto 6.6 % (2.6-8.5); Neutrophils Absolute Auto 10.9 K/mm3 (1.3-6.7); Neutrophils Percent Auto 80.8 % (45.5-73.1); Platelet Count Result 167 k/mm3 (150-375); Red Cell Distribution Width 18.6 % (11.5-14.5); White Blood Count 13.5 K/mm3 (4.5-10.0)
[2022-04-14 07:30] VITALS: BP 125/76; PULSE 83; RESP 16; TEMP 36.5; O2SAT 99
--- NOTE | 2022-04-14 08:05 | WPDANLDPN2 ---
Anes-Prog Note L&D Date/Time: 04/14/22 08:05 Comfortable throughout: section Neuraxial method: spinal Epidural/Spinal procedure site: clean & non-tender Neuro status: Neuro function grossly intact. Cardiovascular status: normal Respiratory status: normal Airway patency: baseline Mental status: baseline Post-Op hydration status: normal Vital Signs: Last Vital Signs Temp 36.6 C 04/14/22 04:49 Pulse 91 04/14/22 04:49 Resp 16 04/14/22 04:49 BP 121/75 04/14/22 04:49 Pulse Ox 98 04/13/22 21:33 O2 Del Method Room Air 04/13/22 21:30 Pain score (VAS): 2 I/O: Intake & Output 04/13/22 04/14/22 04/14/22 23:59 07:59 15:59 Intake Total 900 Output Total 1275 600 Balance -1275 300 Patient feedback: Patient satisfied with anesthetic care.
--- NOTE | 2022-04-14 08:06 | WPDANLDNPN2 ---
Anes-Prog Note L&D-Neuraxial Date/Time: 04/14/22 08:06 Neuraxial medications: intrathecal PF morphine Opiod-related complaints: nausea Patient feedback: Patient satisfied with post-operative pain management.
--- NOTE | 2022-04-14 10:35 | PM.OBPNVD ---
OB - PN: Subj Subjective Date/time seen: 04/14/22 10:35 s/p repeat delivery for severe preeclmapsia, day 1, uncomfortable and mild nausea, magnesium sulfate x 24 hrs post delivery OB - PN: Obj Data Labs CBC & Chem 7: 04/14/22 04:57 04/13/22 15:49 Labs: Laboratory Results - last 24 hr 04/13/22 04/13/22 04/13/22 15:49 15:49 15:49 WBC 14.2 H RBC 4.96 Hgb 13.2 Hct 40.0 MCV 80.6 MCH 26.6 MCHC 33.0 RDW 19.2 H Plt Count 206 MPV 9.9 Immature Gran % (Auto) 2.1 H Neut % (Auto) 76.5 H Lymph % (Auto) 13.8 L [place] % (Auto) 6.5 Eos % (Auto) 0.6 Baso % (Auto) 0.5 Lymph # (Auto) 1.95 [place] # (Auto) 0.9 H Eos # (Auto) 0.1 Baso # (Auto) 0.1 Abs Immat Gran (auto) 0.30 H Absolute Neuts (auto) 10.8 H Absolute Nucleated RBC 0.0 Nucleated RBC % 0.0 Sodium 135 L Potassium 4.1 Chloride 107 Carbon Dioxide 18 L Anion Gap 10 BUN 15 D Creatinine 0.60 L Estim Creat Clear Calc 147 Estimated GFR > 60 Glucose 73 Uric Acid 7.1 Calcium 9.3 Total Bilirubin 0.7 AST 22 ALT 18 Alkaline Phosphatase 168 H Total Protein 7.0 Albumin 3.9 Blood Type O Positive Antibody Screen Negative 04/14/22 04:57 WBC 13.5 H RBC 3.90 L Hgb 10.4 L Hct 32.3 L MCV 82.8 MCH 26.7 MCHC 32.2 RDW 18.6 H Plt Count 167 MPV 9.7 Immature Gran % (Auto) 1.6 H Neut % (Auto) 80.8 H Lymph % (Auto) 10.3 L [place] % (Auto) 6.6 Eos % (Auto) 0.4 Baso % (Auto) 0.3 Lymph # (Auto) 1.39 [place] # (Auto) 0.9 H Eos # (Auto) 0.1 Baso # (Auto) 0.0 Abs Immat Gran (auto) 0.21 H Absolute Neuts (auto) 10.9 H Absolute Nucleated RBC 0.0 Nucleated RBC % 0.0 Sodium Potassium Chloride Carbon Dioxide Anion Gap BUN Creatinine Estim Creat Clear Calc Estimated GFR Glucose Uric Acid Calcium Total Bilirubin AST ALT Alkaline Phosphatase Total Protein Albumin Blood Type Antibody Screen OB - PN A/P Plan day: 1 Plan: routine care Time Spent With Patient Time: Total time spent is greater than 50% in coordination of care (as documented) at patient's floor/unit and/or counseling patient: Review of Systems Review of Systems: All systems reviewed & are unremarkable except as noted in HPI and below Exam Narrative: Incision CDI Const: General: cooperative and healthy appearing
[2022-04-14] MEDS: diphenhydrAMINE HCl INJ 50 MG/ML VIAL 25 MG IV PUSH (11:50)
[2022-04-14] MEDS: DOCUSATE SODIUM 100 MG CAPSULE PO ×2 (11:50→21:52)
[2022-04-14] MEDS: HYDROcodone/acetaminophen (*CRX) 5-325 MG TABLET 1 TAB PO ×2 (11:51→17:50)
[2022-04-14] MEDS: LACTATED RINGERS 1,000 ML 75 ML IV CONT (11:53)
[2022-04-14 12:00] VITALS: BP 118/70; PULSE 88; RESP 16; TEMP 36.4; O2SAT 98
[2022-04-14 16:00] VITALS: BP 114/75; PULSE 89; RESP 16; TEMP 36.5; O2SAT 99
[2022-04-14] MEDS: IBUPROFEN 600 MG TABLET PO (17:51)
[2022-04-14 20:00] VITALS: BP 115/72; PULSE 105; RESP 16; TEMP 37.3; O2SAT 98
[2022-04-14] MEDS: HYDROcodone/acetaminophen (*CRX) 10-325 MG TABLET 1 TAB PO (21:51)
[2022-04-15] VITALS (9 sets, daily range): BP systolic 131–142; BP diastolic 64–87; PULSE 89–100; RESP 14–18; TEMP 36.5–37.4; O2SAT 97–100
[2022-04-15] MEDS: IBUPROFEN 600 MG TABLET PO ×3 (01:00→16:28)
[2022-04-15] MEDS: HYDROcodone/acetaminophen (*CRX) 10-325 MG TABLET 1 TAB PO ×5 (05:30→19:38)
[2022-04-15 05:56] LABS: Rapid Plasma Reagin Non-Reactive (NonReactive)
--- NOTE | 2022-04-15 08:16 | PM.OBPNVD ---
OB - PN: Subj Subjective Date/time seen: 04/15/22 08:16 Patient comments: no complaints, pain well controlled, incisional pain, tolerating diet and flatus present OB - PN: Obj Data Labs CBC & Chem 7: 04/14/22 04:57 04/13/22 15:49 Labs: Laboratory Results - last 24 hr 04/13/22 15:49 RPR Non-reactive OB - PN A/P Assessment and Plan (1) Preeclampsia, severe: Code(s): O14.10 - Severe pre-eclampsia, unspecified trimester Status: Acute (2) delivery delivered: Code(s): O82 - Encounter for delivery without indication Status: Acute Plan day: 2 Plan: routine care Comments: POD#2 LTCS - no problems Preeclampsia, stable, to start 200 mg labetalol today, to observe for another 24 hours. Time Spent With Patient Time: Total time spent is greater than 50% in coordination of care (as documented) at patient's floor/unit and/or counseling patient: Exam Const: General: comfortable, no acute distress and alert Resp: Effort & Inspection: normal respiratory effort Auscultation: no crackles, no rales and no rhonchi Cardio: Rate: regular rate Heart sounds: no click, no murmurs and no rubs GI: Inspection: non-distended GI Palp: No Tenderness to palpation present (GI) Auscultation: normal bowel sounds Other: Incision - CDI Extrem: General: normal to inspection, no pedal edema and no calf tenderness
[2022-04-15] MEDS: MULTIVIT/MIN/PREN/FOL AC/IRON TABLET 1 TAB PO (08:42)
[2022-04-15] MEDS: LABETALOL HCL 100 MG TABLET 200 MG PO ×2 (08:42→20:45)
[2022-04-15] MEDS: DOCUSATE SODIUM 100 MG CAPSULE PO ×2 (08:43→16:29)
--- NOTE | 2022-04-15 20:55 | PC.NURSE ---
Patient viewed the discharge video Mother & Baby Care, The First Two Weeks . Patient was given the opportunity and encouraged to ask questions. Patient verbalized understanding of information shared and has been given the mother/baby guide for home reference.
[2022-04-16 00:30] VITALS: BP 147/86; PULSE 98; RESP 18; TEMP 36.4; O2SAT 98
[2022-04-16] MEDS: HYDROcodone/acetaminophen (*CRX) 10-325 MG TABLET 1 TAB PO ×3 (00:31→11:25)
[2022-04-16] MEDS: IBUPROFEN 600 MG TABLET PO ×2 (00:41→07:51)
[2022-04-16 05:45] VITALS: BP 138/86; PULSE 90; RESP 18; TEMP 36.9; O2SAT 98
[2022-04-16 07:30] VITALS: BP 144/85; PULSE 94; RESP 16; TEMP 36.6; O2SAT 98
[2022-04-16] MEDS: MULTIVIT/MIN/PREN/FOL AC/IRON TABLET 1 TAB PO (07:51)
[2022-04-16 07:52] VITALS: PULSE 84
[2022-04-16] MEDS: LABETALOL HCL 100 MG TABLET 200 MG PO (07:52)
[2022-04-16] MEDS: DOCUSATE SODIUM 100 MG CAPSULE PO (07:52)
--- NOTE | 2022-04-16 09:17 | PM.OBPNVD ---
OB - PN: Subj Subjective Date/time seen: 04/16/22 09:17 Patient comments: no complaints, pain well controlled, incisional pain, tolerating diet and flatus present OB - PN: Obj Data Labs CBC & Chem 7: 04/14/22 04:57 04/13/22 15:49 OB - PN A/P Assessment and Plan (1) Preeclampsia, severe: Code(s): O14.10 - Severe pre-eclampsia, unspecified trimester Status: Acute Assessment and Plan: Resolving, stable, to discharge on 200 mg labetalol pillar Plan day: 3 Plan: routine care, discharge home and other Comments: Incision check in one week. Given precautions Time Spent With Patient Time: Total time spent is greater than 50% in coordination of care (as documented) at patient's floor/unit and/or counseling patient: Exam Const: General: comfortable, no acute distress and alert Resp: Effort & Inspection: normal respiratory effort Auscultation: no crackles, no rales and no rhonchi Cardio: Rate: regular rate Heart sounds: no click, no murmurs and no rubs GI: Inspection: non-distended GI Palp: No Tenderness to palpation present (GI) Auscultation: normal bowel sounds Other: Incision - CDI Extrem: General: normal to inspection, no pedal edema and no calf tenderness
--- NOTE | 2022-04-16 09:19 | PM.OBDSVD ---
DS: Admitting Diagnosis Discharge Date 04/16/22 Admitting Diagnosis 36 week , severe preeclampsia DS: Discharge Diagnosis Discharge Diagnosis (1) Preeclampsia, severe: Code(s): O14.10 - Severe pre-eclampsia, unspecified trimester Status: Acute (2) delivery delivered: Code(s): O82 - Encounter for delivery without indication Status: Acute OB - DS: Summary OB Procedures : NST, PIH Mgmt and Ultrasound OB Procedures Intrapartum: OB Procedures: : None Peripartum Data Procedures: Procedures Operation Date: 04/13/22 18:00 Actual Procedure Side Surgeon p Section Bilateral Evan Turcios MD Operation Date: 04/15/22 13:30 <No data on this case meets the specified criteria> Time Spent with Patient Time attestation: Total time spent providing and/or coordinating discharge services: DS: Data Data Completed and Pending Pending studies at discharge: Pending at discharge 04/13/22 18:46 Surgical [PTH] Routine Discharge Plan Discharge Attending physician on discharge: Evan Turcios Discharging Clinician: Evan Turcios Patient Disposition: Home, Self-Care Activity: pelvic rest Diet: regular Patient Instructions: Antibiotic Form Stand Alone Forms: General Discharge Information Follow-up/Referrals: Evan Turcios MD [Physician] - Discharge Medications: New sertraline 50 mg tablet 50 mg PO DAILY Qty: 30 3RF Continued PNV [id number] fumarate-FA [] 28 mg iron- 800 mcg Tablet 1 tablet PO DAILY polysaccharide iron complex 150 mg iron Capsule 150 mg PO BIDWM Qty: 30 0RF Changed ibuprofen 600 mg Tablet 600 mg PO BID Qty: 0 0RF hydrocodone-acetaminophen 5-325 mg Tablet 1 tab PO Q4-5H PRN (Reason: Moderate Pain (4-6)) Qty: 25 0RF labetalol 100 mg Tablet 200 mg PO Q12H Qty: 240 3RF Date of admission: 04/13/22 15:20 Primary Care Provider: Sara,Nahum Admitting Provider: Evan Turcios Attending physician on admission: Evan Turcios Condition: Stable
[2022-04-17 08:47] VITALS: BP 157/88; PULSE 97; RESP 20; TEMP 36.9; O2SAT 100
== END 2022-04-16 12:17 | disposition home or self-care (01) | DRG 788 ==
LOC: ANHLDR 15:26 → ANHOB2 22:34
PROVIDERS: Admitting Provider Obstetrics & Gynecology; PCP Hospitalist; Visit Provider Obstetrics & Gynecology
PROC: 10D00Z1 Extraction of Products of Conception, Low, Open Approach (ICD-10-PCS; CPT 59514; principal; 2022-04-13 18:00)
DX: O34.219 Maternal care for unspecified type scar from previous cesarean delivery (principal); O14.14 Severe pre-eclampsia complicating childbirth; Z3A.36 36 weeks gestation of pregnancy; Z37.0 Single live birth; O99.214 Obesity complicating childbirth; E66.01 Morbid (severe) obesity due to excess calories
CPT/HCPCS: 36415; 80053; 84550; 85025; 86592; 86850; 86900; 86901; 88307; A9270; J0690; J1200; J1885; J2274; J2370; J2405; J2590; J3010; J3475; J7120

== ENCOUNTER 2025-02-23 09:19 | Outpatient (CLI) | payer OTHER, SELFPAY ==
--- NOTE | ~2025-02-23 | MMUS_ITS ---
EXAMINATION: MM diagnostic aj BI w tisha, US breast BI complete HISTORY: Breast pain. TECHNIQUE: Additional 3-D tomosynthesis images of the breasts were performed and synthetic 2-D images were generated. CAD analysis was submitted and interpreted. High resolution bilateral complete breas t ultrasound was performed. COMPARISON: None BREAST PARENCHYMAL COMPOSITION: Not dense: There are scattered areas of fibroglandular density. FINDINGS: MAMMOGRAPHIC FINDINGS: There are no suspicious masses, calcifications or architectural distortion in either breast to sugges t malignancy. ULTRASOUND: Complete US of all 4 quadrants of the breast/s and retroareolar region was reviewed. Right breast: At 9:00, 1 cm from the nipple there is an oval hypoechoic 3 mm mass with internal echoe s, no posterior shadowing and no internal vascularity. Parallel orientation. At 9:00, 1 cm from the n ipple there is a 6 mm complicated cyst with internal septations. Left breast: At 3:00, 1 cm from the nipple there is a superficially located oval parallel oriented hy poechoic 8 mm mass without internal vascularity or posterior features. IMPRESSION: 1. Probable benign bilateral breast masses identified by ultrasound. No definite mammographic correla te. 2. Recommend 6 month follow-up limited bilateral breast ultrasound BI-RADS category 3, probably benign findings. Reviewed, dictated and finalized at location B. IMPRESSION: 1. Probable benign bilateral breast masses identified by ultrasound. No definit e mammographic correlate. 2. Recommend 6 month follow-up limited bilateral breast ultrasound BI-RADS category 3, probably benign findings.
== END 2025-02-23 09:20 | disposition home or self-care (01) ==
LOC: MICIMG 09:20
PROVIDERS: PCP Nurse Practitioner; Visit Provider Nurse Practitioner
DX: N64.4 Mastodynia (principal); R92.8 Other abnormal and inconclusive findings on diagnostic imaging of breast
CPT/HCPCS: 76641; 77062; 77066; G0279